=== PATIENT | female | born 1960 | race African-American/Black ===

== ENCOUNTER 2017-05-24 15:18 | Inpatient (IN) | payer BC ==
[2017-05-24] MEDS: SODIUM CHLORIDE 0.9% 1,000 ML IV SCH (18:00)
[2017-05-24] MEDS ORDERED: KETOROLAC 30 MG/ML 1 ML VIAL IVP SCH (18:00)
[2017-05-24 18:31] LABS: Basophils # (A) 0.1 k/uL (0-0.2); Basophils % (A) 0 %; CHCM 34.1; Eosinophils # (A) 0.2 k/uL (0-0.7); Eosinophils % (A) 1 %; HCT 47.1 % (34.0-46.0); HDW 2.49; HGB 16.2 gm/dL (11.4-16.0); Luc # (Auto) 0.26; Luc % (Auto) 2; Lymphocytes % (A) 20 %; MCH 29.3 pg (25.0-35.0); MCHC 34.3 g/dL (31.0-37.0); MCV 85.4 fL (80.0-100.0); Mean Platelet Volume 6.6; Monocytes # (A) 1.1 k/uL (0-1.0); Monocytes % (A) 7 %; Neutrophils # (A) 10.2 k/uL (1.3-7.7); Neutrophils % (A) 69 %; RBC 5.52 m/uL (3.80-5.40); RDW 13.3 % (11.5-15.5); WBC 14.7 k/uL (3.8-10.6); WBC (Perox) 15.28
--- NOTE | 2017-05-24 18:36 | XR ---
EXAMINATION TYPE: XR abdomen 1V DATE OF EXAM: 05/24/2017 COMPARISON: NONE HISTORY: Vomiting TECHNIQUE: 2 views FINDINGS: There is no sign of intestinal obstruction or pneumoperitoneum. Fecal pattern is normal. Th ere is no sign of a mass. There are no pathologic calcifications over the kidneys. Lung bases are rogelio ar. IMPRESSION: Nonacute abdomen.
[2017-05-24 18:38] LABS: ALT 42 U/L (9-52); AST 38 U/L (14-36); Alkaline Phosphatase 109 U/L (38-126); Anion Gap 11 mmol/L; Blood Urea Nitrogen 18 mg/dL (7-17); Calcium 9.4 mg/dL (8.4-10.2); Carbon Dioxide 27 mmol/L (22-30); Chloride 101 mmol/L (98-107); Glucose 83 mg/dL (74-99); Non-African American GFR(MDRD) >60 (>60 ml/min/1.73 sqM); Sodium 139 mmol/L (137-145); Total Bilirubin 0.6 mg/dL (0.2-1.3); Total Protein 7.5 g/dL (6.3-8.2)
[2017-05-24] MEDS ORDERED: Potassium Replacement Protocol 1 EACH MISC MISCELLANE PRN ×2 (18:43→21:06)
[2017-05-24] MEDS: POTASSIUM CHLORIDE 10 MEQ in WATER FOR INJECTION 1 100ML.BAG IVPB SCH ×3 (20:15→22:37)
[2017-05-24] MEDS: KETOROLAC 30 MG/ML 1 ML VIAL IVP PRN (20:50)
[2017-05-24] MEDS: ONDANSETRON 4 MG/2 ML VIAL IVP PRN (20:52)
[2017-05-24] MEDS ORDERED: POTASSIUM CHLORIDE 10 MEQ, LIDOCAINE 2% INJ 10 MG in SODIUM CHLORIDE 0.9% 100 ML IVPB SCH (21:00)
[2017-05-24] MEDS: POTASSIUM CHLORIDE 10 MEQ, LIDOCAINE 2% INJ 10 MG in SODIUM CHLORIDE 0.9% 100 ML IV SCH ×2 (22:35→23:04)
[2017-05-25] MEDS: SODIUM CHLORIDE 0.9% 1,000 ML IV SCH ×3 (06:11→16:28)
[2017-05-25] MEDS: ONDANSETRON 4 MG/2 ML VIAL IVP PRN ×2 (06:50→13:02)
[2017-05-25] MEDS ORDERED: SCOPOLAMINE 1.5MG/72HR PATCH TRANSDERM STA (08:37)
[2017-05-25] MEDS: amLODIPine 5 MG TAB PO SCH (08:42)
[2017-05-25] MEDS: PANTOPRAZOLE 40 MG TABLET PO SCH (08:42)
[2017-05-25] MEDS: ASPIRIN 81 MG CHEW PO SCH (08:43)
[2017-05-25] MEDS: METOCLOPRAMIDE 5 MG/ML 2 ML VIAL IVP PRN ×2 (08:56→14:41)
--- NOTE | 2017-05-25 10:02 | P.CONS ---
History of Present Illness - Reason for Consult Consult date: 05/25/17 Nausea vomiting Requesting physician: Jona Aguilar - History of Present Illness 56-year-old female presents with intractable nausea vomiting diarrhea that started last . Patient ate a meal consisting of multicolored laird peppers, broccoli, baked chicken wings with blue cheese on night. She then had a large liquid nonbloody bowel movement the next day followed by multiple episodes of nonbloody emesis and watery stools. Diarrhea subsided on Tuesday but she continues to have intermittent dry heaves. No documented fevers but she did feel feverish. White count 14.7. Hemoglobin 16.2. BUN 18. An 0.6. Potassium 3.0. Sodium 139. Transaminases unremarkable. Lipase 103. Abdominal x-rays nonacute abdomen. No history of EGD. Review of Systems Constitutional: Denies fever, chills, sweats, weight gain, or loss. HEENT: Negative for migraines, blurred vision or loss, earaches, drainage, tinnitus, oral mucosal lesions, dysphagia, or odynophagia. CARDIAC: Hypertension. Negative for chest pain, arrhythmias, or palpitation. RESPIRATORY: Negative for shortness of breath, hemoptysis, cough, or sputum production. GI: See HPI for pertinent findings. : Negative for hematuria, urgency, frequency, polyuria, or dysuria. GYNc: Denies possibility of . Negative vaginal discharge. MUSCULOSKELETAL: Negative for muscle aches, swelling, arthritis, and arthralgias. NEUROLOGIC: Negative for stroke or TIA. ENDOCRINE: Negative for thyroid problems. SKIN: Negative for rash or itching. PSYCHIATRIC: Negative history for depression and anxiety All systems: negative (See HPI) Past Medical History Past Medical History: Hypertension History of Any Multi-Drug Resistant Organisms: None Reported Past Surgical History: Uterine Ablation Past Anesthesia/Blood Transfusion Reactions: No Reported Reaction Past Psychological History: No Psychological Hx Reported Smoking Status: Former smoker Past Alcohol Use History: None Reported Past Drug Use History: Marijuana - Past Family History Sister(s) Family Medical History: Hypertension Medications and Allergies Home Medications Medication Instructions Recorded Confirmed Type Aspirin EC [Ecotrin Low Dose] 81 mg PO DAILY 05/24/17 05/24/17 History Esomeprazole Magnesium [NexIUM] 40 mg PO DAILY 05/24/17 05/24/17 History Flaxseed Oil [Dexter-3 Flaxseed Oil] 1,000 mg PO DAILY 05/24/17 05/24/17 History Multivitamins, Thera [Multivitamin 1 tab PO DAILY 05/24/17 05/24/17 History (formulary)] amLODIPine [Norvasc] 5 mg PO DAILY 05/24/17 05/24/17 History Allergies Allergy/AdvReac Type Severity Reaction Status Date / Time No Known Allergies Allergy Verified 05/24/17 16:53 Physical Exam Vitals: Vital Signs Temp Pulse Resp BP BP Pulse Ox 05/25/17 07:00 97.7 F 63 20 144/74 97 05/24/17 23:00 98.6 F 65 18 155/82 99 05/24/17 16:22 97.7 F 56 L 16 155/75 98 Intake and Output 05/24/17 05/25/17 05/25/17 22:59 06:59 14:59 Intake Total 350 400 Balance 350 400 Intake: Oral 350 400 Other: Voiding Method Toilet Toilet # Voids 1 2 Weight 73 kg General appearance: The patient is alert, oriented, in no acute distress. HET: Head is normocephalic and atraumatic. Pupils are equal and reactive. Oropharynx is clear without lesions. Neck: Supple without lymphadenopathy. Trachea midline. Heart: S1 S2. Regular rate and rhythm. Lungs: No crackles or wheezes are heard. Abdomen: Soft, nontender, nondistended with bowel sounds. No peritoneal signs. No palpable organomegaly or masses. Extremities: Normal skin color and turgor. No cyanosis, rash, ulceration, clubbing, or edema. Radial and pedal pulses are 2/4 bilaterally. Neurological: No focal deficits. Strength and sensation are grossly intact. Results CBC & Chem 7: 05/24/17 18:10 05/24/17 18:10 Labs: Abnormal Lab Results - Last 24 Hours (Table) 05/24/17 05/24/17 Range/Units 18:10 18:10 WBC 14.7 H (3.8-10.6) k/uL RBC 5.52 H (3.80-5.40) m/uL Hgb 16.2 H (11.4-16.0) gm/dL Hct 47.1 H (34.0-46.0) % Neutrophils # 10.2 H (1.3-7.7) k/uL Monocytes # 1.1 H (0-1.0) k/uL Potassium 3.0 L* (3.5-5.1) mmol/L BUN 18 H (7-17) mg/dL AST 38 H (14-36) U/L Abdominal x-ray: report reviewed (Dr. Valle) Assessment and Plan (1) Gastroenteritis Narrative/Plan: 56-year-old female presents with intractable nausea vomiting nonbloody diarrhea 5 days after eating a meal consisting of fresh vegetables chicken wings and blue cheese. Suspect gastroenteritis. Status: Acute Plan: 1. Continue with IV emetics. Scopolamine patch. Protonix 40 mg daily. Supportive and symptomatic support. Will advance diet as tolerated. Endoscopic evaluation not planned at this time but contingent on clinical course. Overall symptoms appear to be improving. Will follow closely with you. Thank you for this kind referral and the opportunity to participate in the care of your patient. This consultation was discussed with Dr. Valle. The impression and plan of care have been directed as dictated.
[2017-05-25 10:19] LABS: ALT 36 U/L (9-52); AST 33 U/L (14-36); Alkaline Phosphatase 114 U/L (38-126); Anion Gap 11 mmol/L; Blood Urea Nitrogen 14 mg/dL (7-17); Calcium 9.2 mg/dL (8.4-10.2); Carbon Dioxide 25 mmol/L (22-30); Chloride 101 mmol/L (98-107); Glucose 75 mg/dL (74-99); Non-African American GFR(MDRD) >60 (>60 ml/min/1.73 sqM); Potassium 3.4 mmol/L (3.5-5.1); Sodium 137 mmol/L (137-145); Total Bilirubin 0.8 mg/dL (0.2-1.3); Total Protein 7.1 g/dL (6.3-8.2)
[2017-05-25] MEDS: MULTIVITAMINS, THERA 1 EACH TAB PO SCH (12:59)
[2017-05-25] MEDS ORDERED: Potassium Replacement Protocol 1 EACH MISC MISCELLANE PRN (13:05)
[2017-05-25] MEDS: POTASSIUM CHLORIDE 10 MEQ, LIDOCAINE 2% INJ 10 MG in SODIUM CHLORIDE 0.9% 100 ML IV SCH ×2 (14:35→16:28)
[2017-05-25] MEDS: KETOROLAC 30 MG/ML 1 ML VIAL IVP PRN (21:01)
--- NOTE | 2017-05-25 23:21 | HP ---
CHIEF COMPLAINT: This is a 56-year-old -[place] female with nausea and vomiting for the past 4 days; unable to keep anything down. She had a large liquid bowel movement the day of the episode. Since then she cannot keep any solids or liquids down and is unable to take anything by mouth. She had some fevers, tactile, and was admitted due to dehydration and acute abdominal pain. GI consultation is recommended at this time. REVIEW OF SYSTEMS: CONSTITUTIONAL: Weakness, fatigue. HEENT: Negative. CARDIAC: Negative. PULMONARY: Negative. GI: As mentioned above. BLEACH TESTER: Negative. MUSCULOSKELETAL: Negative. NEURO: Negative. ENDOCRINE: Negative. SKIN: Dry mucous membranes. PSYCH: Negative. PAST MEDICAL HISTORY: 1. Hypertension. 2. Uterine ablation. 3. Former smoker. 4. Marijuana user. FAMILY HISTORY: Sister with hypertension. HOME MEDICATIONS: 1. Aspirin 81 daily. 2. Nexium 40 daily. 3. Cushing-3 daily. 4. Multivitamin daily. 5. Norvasc 5 mg daily. ALLERGIES: NO KNOWN DRUG ALLERGIES. Temperature 97.7, pulse 60s, respiratory rate 18 to 20, blood pressure 140s over 70s. Pulse ox 97% on room air. SKIN: Dry. Skin turgor poor. Dry mucous membranes. Lungs are clear. CARDIAC: S1, S2. Mild tachycardia. ABDOMEN: Soft. Increased bowel sounds. No mass or organomegaly. EXTREMITIES: Some dry skin. Normal pulses. NEUROLOGIC: Alert and oriented x3. PSYCH: Fair mood and affect. White count is 14.7, hemoglobin 16.2. Potassium 3.1. Sodium 139. ASSESSMENT: 1. Gastroenteritis. 2. Hypokalemia. 3. Dehydration, mild to moderate. Scopolamine patch. Protonix is ordered. IV antiemetics ordered. Wait for GI recommendations. Stool culture. Rehydration. Electrolyte replacement. MTDD
[2017-05-26] MEDS: SODIUM CHLORIDE 0.9% 1,000 ML IV SCH ×3 (00:03→20:16)
[2017-05-26 08:09] LABS: ALT 30 U/L (9-52); AST 26 U/L (14-36); Alkaline Phosphatase 104 U/L (38-126); Anion Gap 11 mmol/L; Blood Urea Nitrogen 11 mg/dL (7-17); Calcium 8.9 mg/dL (8.4-10.2); Carbon Dioxide 23 mmol/L (22-30); Chloride 103 mmol/L (98-107); Glucose 55 mg/dL (74-99); Non-African American GFR(MDRD) >60 (>60 ml/min/1.73 sqM); Potassium 3.5 mmol/L (3.5-5.1); Sodium 137 mmol/L (137-145); Total Bilirubin 0.8 mg/dL (0.2-1.3); Total Protein 6.8 g/dL (6.3-8.2)
[2017-05-26 08:13] LABS: Basophils % (A) 0 %; CH 29.8; CHCM 34.1; Eosinophils # (A) 0.1 k/uL (0-0.7); Eosinophils % (A) 1 %; HCT 44.9 % (34.0-46.0); HDW 2.47; HGB 15.2 gm/dL (11.4-16.0); Luc # (Auto) 0.26; Luc % (Auto) 2; Lymphocytes # (A) 2.8 k/uL (1.0-4.8); Lymphocytes % (A) 23 %; MCH 29.7 pg (25.0-35.0); MCHC 33.8 g/dL (31.0-37.0); MCV 87.6 fL (80.0-100.0); Monocytes # (A) 0.8 k/uL (0-1.0); Monocytes % (A) 7 %; Neutrophils # (A) 8.2 k/uL (1.3-7.7); Neutrophils % (A) 68 %; RBC 5.13 m/uL (3.80-5.40); WBC 12.2 k/uL (3.8-10.6); WBC (Perox) 11.72
[2017-05-26] MEDS: POTASSIUM CHLORIDE 10 MEQ, LIDOCAINE 2% INJ 10 MG in SODIUM CHLORIDE 0.9% 100 ML IVPB SCH ×2 (08:17→09:37)
[2017-05-26] MEDS: ONDANSETRON 4 MG/2 ML VIAL IVP PRN ×3 (08:17→20:14)
[2017-05-26] MEDS: KETOROLAC 30 MG/ML 1 ML VIAL IVP PRN (08:17)
[2017-05-26] MEDS: PANTOPRAZOLE 40 MG TABLET PO SCH (08:18)
[2017-05-26] MEDS: amLODIPine 5 MG TAB PO SCH (08:18)
[2017-05-26] MEDS: ASPIRIN 81 MG CHEW PO SCH (08:19)
[2017-05-26 10:23] LABS: Glucose,Whole Blood 65 mg/dL (75-99)
[2017-05-26] MEDS: METOCLOPRAMIDE 5 MG/ML 2 ML VIAL IVP PRN ×2 (10:30→21:51)
[2017-05-26 10:43] LABS: Glucose,Whole Blood 90 mg/dL (75-99)
--- NOTE | 2017-05-26 11:40 | P.PN ---
Subjective Principal diagnosis: Nausea vomiting 56-year-old female admitted with nausea vomiting diarrhea suspected gastroenteritis. Vomiting and diarrhea resolved. Persistent nausea. Tolerating very small amounts of diet. Afebrile. Objective - Vital Signs Vital signs: Vital Signs Temp 97.8 F 05/26/17 07:00 Pulse 65 05/26/17 07:00 Resp 20 05/26/17 07:00 BP 151/73 05/26/17 07:00 Pulse Ox 98 05/26/17 07:00 Intake & Output 05/25/17 05/26/17 05/26/17 18:59 06:59 18:59 Intake Total 1400 Balance 1400 Intake: Intake, IV Titration 1100 Amount Potassium Chloride 10 meq 100 Lidocaine 2% Inj 10 mg In Sodium Chloride 0.9% 100 ml @ 100 mls/hr IV Q1HR DONTE Rx#:[id number] Sodium Chloride 0.9% 1, 1000 000 ml @ 100 mls/hr IV . Q10H DONTE Rx#:[id number] Oral 300 Other: Voiding Method Toilet Toilet # Voids 2 1 # Bowel Movements 0 - Exam General appearance: The patient is alert, oriented, in no acute distress. HET: Head is normocephalic and atraumatic. Pupils are equal and reactive. Oropharynx is clear without lesions. Neck: Supple without lymphadenopathy. Trachea midline. Heart: S1 S2. Regular rate and rhythm. Lungs: No crackles or wheezes are heard. Abdomen: Soft, nontender, nondistended with bowel sounds. No peritoneal signs. No palpable organomegaly or masses. Extremities: Normal skin color and turgor. No cyanosis, rash, ulceration, clubbing, or edema. Radial and pedal pulses are 2/4 bilaterally. Neurological: No focal deficits. Strength and sensation are grossly intact. - Labs CBC & Chem 7: 05/26/17 07:30 05/26/17 07:30 Labs: Abnormal Lab Results - Last 24 Hours (Table) 05/26/17 05/26/17 05/26/17 Range/Units 07:30 07:30 10:22 WBC 12.2 H (3.8-10.6) k/uL Neutrophils # 8.2 H (1.3-7.7) k/uL Glucose 55 L (74-99) mg/dL POC Glucose (mg/dL) 65 L (75-99) mg/dL Assessment and Plan (1) Gastroenteritis Narrative/Plan: 56-year-old female presents with intractable nausea vomiting nonbloody diarrhea 5 days after eating a meal consisting of fresh vegetables chicken wings and blue cheese. Suspect gastroenteritis. Status: Acute Plan: 1. Continue with IV emetics. Scopolamine patch. Protonix 40 mg daily. Supportive and symptomatic support. Diet as tolerated. Endoscopic evaluation not planned at this time but contingent on clinical course. Will follow closely with you. Assessment and plan of care discussed with Dr. Valle
[2017-05-26] MEDS: MULTIVITAMINS, THERA 1 EACH TAB PO SCH (12:33)
[2017-05-26 13:31] LABS: Anion Gap 9 mmol/L; Blood Urea Nitrogen 12 mg/dL (7-17); Calcium 9.3 mg/dL (8.4-10.2); Carbon Dioxide 24 mmol/L (22-30); Chloride 104 mmol/L (98-107); Glucose 83 mg/dL (74-99); Non-African American GFR(MDRD) >60 (>60 ml/min/1.73 sqM); Sodium 137 mmol/L (137-145)
[2017-05-27] MEDS: ONDANSETRON 4 MG/2 ML VIAL IVP PRN ×4 (02:51→20:29)
[2017-05-27] MEDS: SODIUM CHLORIDE 0.9% 1,000 ML IV SCH ×2 (05:27→14:31)
[2017-05-27] MEDS: METOCLOPRAMIDE 5 MG/ML 2 ML VIAL IVP PRN (05:28)
[2017-05-27] MEDS: PANTOPRAZOLE 40 MG TABLET PO SCH (08:11)
[2017-05-27] MEDS: amLODIPine 5 MG TAB PO SCH (08:11)
[2017-05-27] MEDS: ASPIRIN 81 MG CHEW PO SCH (08:11)
[2017-05-27 09:29] LABS: Basophils % (A) 0 %; Eosinophils # (A) 0.2 k/uL (0-0.7); Eosinophils % (A) 1 %; HCT 44.4 % (34.0-46.0); HDW 2.45; Luc % (Auto) 2; Lymphocytes # (A) 2.9 k/uL (1.0-4.8); Lymphocytes % (A) 22 %; MCH 29.8 pg (25.0-35.0); MCHC 33.7 g/dL (31.0-37.0); MCV 88.6 fL (80.0-100.0); Mean Platelet Volume 7.2; Monocytes # (A) 0.9 k/uL (0-1.0); Monocytes % (A) 7 %; Neutrophils # (A) 8.5 k/uL (1.3-7.7); Neutrophils % (A) 67 %; RBC 5.01 m/uL (3.80-5.40); RDW 14.2 % (11.5-15.5); WBC 12.8 k/uL (3.8-10.6); WBC (Perox) 11.63
--- NOTE | 2017-05-27 11:53 | P.PN ---
Subjective Principal diagnosis: Nausea vomiting 56-year-old female admitted with nausea vomiting diarrhea suspected gastroenteritis. Vomiting and diarrhea resolved. Persistent nausea but slowly improving. Tolerating very small amounts of diet. Afebrile. Objective - Vital Signs Vital signs: Vital Signs Temp 98.9 F 05/27/17 07:00 Pulse 79 05/27/17 07:00 Resp 16 05/27/17 07:00 BP 145/82 05/27/17 07:00 Pulse Ox 97 05/27/17 07:00 Intake & Output 05/26/17 05/27/17 05/27/17 18:59 06:59 18:59 Intake Total 240 Balance 240 Intake: Oral 240 Other: # Voids 1 1 # Bowel Movements 0 - Exam General appearance: The patient is alert, oriented, in no acute distress. HET: Head is normocephalic and atraumatic. Pupils are equal and reactive. Oropharynx is clear without lesions. Neck: Supple without lymphadenopathy. Trachea midline. Heart: S1 S2. Regular rate and rhythm. Lungs: No crackles or wheezes are heard. Abdomen: Soft, nontender, nondistended with bowel sounds. No peritoneal signs. No palpable organomegaly or masses. Extremities: Normal skin color and turgor. No cyanosis, rash, ulceration, clubbing, or edema. Radial and pedal pulses are 2/4 bilaterally. Neurological: No focal deficits. Strength and sensation are grossly intact. - Labs CBC & Chem 7: 05/27/17 09:02 05/26/17 12:59 Labs: Abnormal Lab Results - Last 24 Hours (Table) 05/27/17 Range/Units 09:02 WBC 12.8 H (3.8-10.6) k/uL Neutrophils # 8.5 H (1.3-7.7) k/uL Assessment and Plan (1) Gastroenteritis Narrative/Plan: 56-year-old female presents with intractable nausea vomiting nonbloody diarrhea 5 days after eating a meal consisting of fresh vegetables chicken wings and blue cheese. Suspect gastroenteritis. Status: Acute Plan: 1. Continue with IV emetics. Scopolamine patch. Protonix 40 mg daily. Supportive and symptomatic support. Diet as tolerated. Endoscopic evaluation not planned at this time but contingent on clinical course as early as tomorrow if nausea does not improve. Will follow closely with you. Assessment and plan of care discussed with Dr. Valle
[2017-05-27] MEDS: MULTIVITAMINS, THERA 1 EACH TAB PO SCH (12:15)
--- NOTE | 2017-05-27 13:56 | PN ---
SUBJECTIVE: A 56-year-old white female ( ) progressive nausea, being treated with antiemetics. She is on a soft diet at this time. Suspect gastroenteritis. Temp 97.8, pulse 60 to 65, respiratory rate 18 to 20, blood pressure 140s to 150s over 70s. O2 is 98% on room air. HEENT: Normocephalic, atraumatic. OPHTHALMOLOGIC: Pupils equal, round and reactive to light and accommodation. HEART: S1 and S2. LUNGS: Clear. GI: Increased bowel sounds x4. White count is 12.2 ASSESSMENT: 1. Gastroenteritis. 2. Irretractible nausea, vomiting. 3. Nonbloody stools ( ). Continue with IV antiemetics, scopolamine patch, Protonix. Supportive comfort measures. Possible discharge home in the next 24 to 48 hours. MTDD
[2017-05-27] MEDS: KETOROLAC 30 MG/ML 1 ML VIAL IVP PRN (16:23)
[2017-05-28] MEDS: METOCLOPRAMIDE 5 MG/ML 2 ML VIAL IVP PRN ×2 (00:36→11:56)
[2017-05-28] MEDS: SODIUM CHLORIDE 0.9% 1,000 ML IV SCH ×3 (00:37→22:18)
[2017-05-28] MEDS: ONDANSETRON 4 MG/2 ML VIAL IVP PRN ×4 (03:08→22:17)
[2017-05-28] MEDS: amLODIPine 5 MG TAB PO SCH (09:09)
[2017-05-28] MEDS: PANTOPRAZOLE 40 MG TABLET PO SCH (09:09)
[2017-05-28] MEDS: ASPIRIN 81 MG CHEW PO SCH (09:09)
[2017-05-28] MEDS: MULTIVITAMINS, THERA 1 EACH TAB PO SCH (11:59)
--- NOTE | 2017-05-28 16:44 | PN ---
DATE OF SERVICE: 05/28/2017 The patient is a 56-year-old pleasant lady admitted to the hospital with acute onset of nausea, vomiting, diarrhea a week ago. She is feeling better. Still has some nausea. No further episodes of nausea, vomiting. She is on a heart- healthy diet, tolerating reasonably well. On physical examination, she appears comfortable. No apparent distress. Vital signs are stable. Blood pressure is 132 /74, pulse rate 82, temperature 97.5. HEENT EXAMINATION: Unremarkable. Conjunctivae pink. Sclerae anicteric. Oral cavity no lesions. NECK: No JVD or lymph node enlargement. Chest was clear to auscultation. HEART: Regular rate and rhythm. ABDOMEN: Soft. Bowel sounds are positive. No organomegaly. EXTREMITIES: No pedal edema. SKIN: No rashes. NEURO: Alert and oriented x3. No focal deficits. Labs done yesterday showed WBC 12.8, hemoglobin 15, platelets normal. Basic metabolic panel within normal limits. IMPRESSION: Acute onset of nausea and vomiting and diarrhea, most likely related to viral gastroenteritis, which is gradually improving. Patient has no further episodes of vomiting or diarrhea; however, she had some persistent nausea, possibly related to recent episode of viral gastroenteritis. RECOMMENDATIONS: 1. Continue with antiemetics. 2. Advised small frequent meals. 3. Continue with Protonix and antiemetics as needed. 4. She can be discharged home tomorrow with outpatient followup in a week. If she still has persistent symptoms in the next 1 or 2 weeks, I will consider proceeding with further workup. Thank you for this consultation. MARIA LUISA
[2017-05-28] MEDS: KETOROLAC 30 MG/ML 1 ML VIAL IVP PRN (19:56)
[2017-05-29] MEDS: KETOROLAC 30 MG/ML 1 ML VIAL IVP PRN (06:58)
[2017-05-29] MEDS: ONDANSETRON 4 MG/2 ML VIAL IVP PRN (07:06)
[2017-05-29 07:09] VITALS: BP 128/66; PULSE 63; RESP 16; TEMP 99.2
[2017-05-29] MEDS: ASPIRIN 81 MG CHEW PO SCH (08:10)
[2017-05-29] MEDS: PANTOPRAZOLE 40 MG TABLET PO SCH (08:10)
[2017-05-29] MEDS: amLODIPine 5 MG TAB PO SCH (08:11)
[2017-05-29] MEDS: SODIUM CHLORIDE 0.9% 1,000 ML IV SCH (08:13)
--- NOTE | 2017-05-29 10:48 | PN ---
SUBJECTIVE: 56 year old female admitted with dehydration, gastroenteritis, possible ( ) ulcer. EGD will be done if she does not improve. Her diet will be advanced. Zofran will be given for nausea. Cardiovascular: S1, S2. Lungs are clear. Psych: Fair mood and affect. GI: Increased bowel sounds times four. ASSESSMENT AND PLAN: 1. Gastroenteritis. 2. Dehydration. 3. Acute gastritis. 4. Hypertension. 5. Advanced diet with Zofran. 6. Possible discharge home tomorrow versus EGD, depends on her improvement. MTDD
== END 2017-05-29 12:21 | disposition home or self-care (01) | DRG 392 ==
LOC: 4MS4W 15:41
PROVIDERS: ADMIT Family Medicine; ATTEND Family Medicine
DX: A08.4 Viral intestinal infection, unspecified (principal); I10 Essential (primary) hypertension; E87.6 Hypokalemia; E86.0 Dehydration; K29.00 Acute gastritis without bleeding; R10.9 Unspecified abdominal pain; R53.1 Weakness; R00.0 Tachycardia, unspecified; F12.90 Cannabis use, unspecified, uncomplicated; Z87.891 Personal history of nicotine dependence; Z82.49 Family history of ischemic heart disease and other diseases of the circulatory system; Z79.899 Other long term (current) drug therapy; Z79.82 Long term (current) use of aspirin; Z87.42 Personal history of other diseases of the female genital tract
CPT/HCPCS: 74000; 80048; 80053; 83690; 83735; 84132; 85025; 85652

== ENCOUNTER → 2017-08-02 | Outpatient (CLI) | payer BC ==
--- NOTE | 2017-08-03 11:09 | MM ---
Reason for exam: screening (asymptomatic). Last mammogram was performed 1 year and 2 months ago. History: Patient is postmenopausal and is nulliparous. Took hormonal contraceptives for 21 years beginning at age 24. Physical Findings: A clinical breast exam by your physician is recommended on an annual basis and results should be correlated with mammographic findings. MG Screening Mammo w CAD Bilateral CC and MLO view(s) were taken. Prior study comparison: June 11, 2016, bilateral MG 3d screening mammo w/cad. May 20, 2015, bilateral MG diagnostic mammo w CAD VON. The breast tissue is heterogeneously dense. This may lower the sensitivity of mammography. New mass like area upper inner right breast measuring 2.5 x 1.3cm approximately 9.5cm from nipple. This finding is changed when compared with previous exams. ASSESSMENT: Incomplete: need additional imaging evaluation, BI-RAD 0 RECOMMENDATION: Special view mammogram and ultrasound of the right breast. [facility] will attempt to contact patient to return for supplemental views and ultrasound.
== END | disposition home or self-care (01) ==
LOC: RADMAMWWP 14:39
PROVIDERS: ATTEND Obstetrics & Gynecology
DX: Z12.31 Encounter for screening mammogram for malignant neoplasm of breast (principal)

== ENCOUNTER → 2017-08-15 | Outpatient (CLI) | payer BC ==
--- NOTE | 2017-08-16 08:06 | MM ---
Reason for exam: additional evaluation requested from abnormal screening. Last mammogram was performed less than 1 month ago. History: Patient is postmenopausal and is nulliparous. Took hormonal contraceptives for 21 years beginning at age 24. Physical Findings: Nurse did not find any significant physical abnormalities on exam. MG Work Up Mamm w CAD RT Spot compression CC, spot compression MLO, and LM view(s) were taken of the right breast. Prior study comparison: August 02, 2017, bilateral MG screening mammo w CAD. June 11, 2016, bilateral MG 3d screening mammo w/cad. May 20, 2015, bilateral MG diagnostic mammo w CAD VON. June 17, 2014, bilateral MG screening mammo w CAD. There are scattered fibroglandular densities. There is a new 2.5 x 1.5 x 2.2cm irregular mass in the upper inner quadrant. Lymph nodes in the right axilla are more numerous and larger than the contralateral side. These results were verbally communicated with the patient and result sheet given to the patient on 08/15/17. ASSESSMENT: Incomplete: need additional imaging evaluation, BI-RAD 0 RECOMMENDATION: Ultrasound of the right breast. KEIKOD
--- NOTE | 2017-08-16 08:09 | USB ---
Reason for exam: additional evaluation requested from abnormal screening. History: Patient is postmenopausal and is nulliparous. Took hormonal contraceptives for 21 years beginning at age 24. US Breast Workup Limited RT Right breast ultrasound demonstrates a 1.7 x 1.9 x 1.6cm irregular, solid, hypoechoic lesion at 1 o'clock. 2 axillary nodes are prominent measuring up to 1.1cm short axis but show cortical thickening up to 8mm. These results were verbally communicated with the patient and result sheet given to the patient on 08/15/17. ASSESSMENT: Highly suggestive of malignancy, BI-RAD 5 RECOMMENDATION: Surgical consultation and ultrasound core biopsy of the right breast. (1 o'clock and axillary lymph node) Called with mammographic findings and has scheduled an appointment for the patient for 08/17/17 at 2:[address] Mares/Fátima Schaefer. PRELIMINARY REPORT CALLED AND FAXED TO DR. MARES ON 08/16/17.
== END | disposition home or self-care (01) ==
LOC: RADMAMWWP 14:26
PROVIDERS: ATTEND Obstetrics & Gynecology
DX: R92.8 Other abnormal and inconclusive findings on diagnostic imaging of breast (principal)
CPT/HCPCS: 76642; G0206

== ENCOUNTER → 2017-08-30 | Day surgery (SDC) | payer BC ==
[2017-08-30 07:32] VITALS: RESP 16; TEMP 97.7; BMI 31.6
[2017-08-30 09:00] VITALS: BP 135/84; PULSE 61
--- NOTE | 2017-08-30 09:26 | USB ---
EXAMINATION TYPE: US biopsy breast VAD RT, US biopsy breast add'l VAD RT, MG diagnostic mammo RT wo CAD DATE OF EXAM: 08/30/2017 CLINICAL HISTORY: R92.8 Abn mammo. Abnormal ultrasound TECHNIQUE: Ultrasound guided core biopsy of right breast and right axillary lymph nodes with clip placement both sites on follow-up diagnostic right-sided mammogram. COMPARISON: Prior right breast mammogram and ultrasound August 15, 2017 and older studies. FINDINGS: The procedure of ultrasound guided core biopsy was explained to the patient. Benefits, alternatives, and risks were discussed. An informed consent was then obtained. The patient was placed in supine and LPO positioning for imaging and for the procedure. Preprocedure imaging redemonstrates vague hypoechoic 2.1 cm poorly defined lesion deep in the right breast at 1:00 position. Preprocedure imaging redemonstrates suspicious prominent lymph nodes in the right axilla with some cortical thickening. The overlying skin was prepped and draped in usual sterile fashion. Lidocaine was used as anesthetic into the skin. Lidocaine with epinephrine is used as anesthetic into the deeper tissue up to area of concern in the right breast at 2 sites. Under ultrasound guidance, a 12-gauge vacuum assisted biopsy gun device was used to obtain 5 core samples of primary breast lesion. Following this, a biopsy clip was left in lesion. Under ultrasound guidance, a 14-gauge Bard device was used to obtain 3 core samples of right axillary lymph nodes. Following this a [place] ally clip is deployed. The patient tolerated the procedure well without any immediate complication. The patient was kept in the radiology department for short stay after the procedure and then discharged home in stable condition. High index of suspicion noted at time of procedure. IMPRESSION: Successful, uncomplicated ultrasound guided core biopsy of area of concern in the right breast and axilla, full pathology results to follow. Pathology Results: Malignant A. BREAST, RIGHT, SITE A, ONE O'CLOCK, CORE BIOPSY: INVASIVE HIGH GRADE DUCTAL CARCINOMA. SEE SURGICAL PATHOLOGY CANCER CASE SUMMARY AND COMMENT. B. RIGHT AXILLA, CORE BIOPSY: INVASIVE HIGH GRADE DUCTAL CARCINOMA WITH ASSOCIATED LYMPHOID TISSUE. SEE COMMENT. Recommendation Surgical consult of the right breast. [facility]
== END ==
LOC: RADUSWWP 06:54
PROVIDERS: ATTEND Surgery
DX: C50.211 Malignant neoplasm of upper-inner quadrant of right female breast (principal); Z17.1 Estrogen receptor negative status [ER-]; C96.9 Malignant neoplasm of lymphoid, hematopoietic and related tissue, unspecified
CPT/HCPCS: 38505; 88305; 88342; 19083; G0206; A4648; J2001; 19084

== ENCOUNTER → 2017-09-12 | Outpatient (CLI) | payer BC ==
--- NOTE | 2017-09-12 08:42 | CT ---
EXAMINATION TYPE: CT abdomen pelvis w con DATE OF EXAM: 09/12/2017 HISTORY: Breast CA CT DLP: 936.2mGycm Automated Exposure Control for Dose Reduction was Utilized. CONTRAST: CT scan of the abdomen and pelvis is performed with IV Contrast, patient injected with 100 mL of Omni paque 300. COMPARISON: None. FINDINGS: LUNG BASES: Bibasilar subsegmental dependent atelectasis is present. There is asymmetric right breast skin thickening measuring up to 6 mm. LIVER/GB: 3 mm hypoattenuated hepatic lesion is seen within the left lobe on image 12 of series 3 and image 13 of series 5. Additional 2 mm hypoattenuated lesion is seen within the inferior right lobe o n series 3 image 29 and series 5 image 30. These are too small to accurately characterize. Remainder of the hepatic parenchyma is unremarkable. Liver contour is smooth. No intrahepatic biliary ductal di latation. Gallbladder is unremarkable without radiopaque gallstones. PANCREAS: No significant abnormality is seen. SPLEEN: No significant abnormality is seen. ADRENALS: Symmetric without measurable nodule. KIDNEYS: No significant abnormality is seen. BOWEL: There is a small hiatal hernia and likely pulsion in diverticulum at the gastroesophageal junc tion, left lateral. UTERUS/ADNEXA: No gross abnormality seen. LYMPH NODES: No greater than 1cm abdominal or pelvic lymph nodes are appreciated. OSSEOUS STRUCTURES: 6 mm sclerotic focus of the right ischium and 2 mm sclerotic focus of the right i liac bone are favored to represent bone islands but are nonspecific. Minimal degenerative changes of the thoracolumbar spine are evident as well as the pubic symphysis. OTHER: Small fat filled umbilical hernia superimposed upon diastases recti. IMPRESSION: 1. Two subcentimeter (3 mm and 2 mm) hepatic lesions that are nonspecific and too small to accurately characterize. If clinically indicated dedicated enhanced MR could be performed as these may be very T2 hyperintense and related to hepatic cysts. Early metastasis is possible but considered less likely . If any outside imaging is available for comparison of stability addendum could be performed. 2. Nonspecific sclerotic foci of the left hemipelvis, favored to represent benign bone islands. 3. No evidence of adenopathy within the abdomen or pelvis. 4. Diffuse right-sided breast skin thickening. 5. Small hiatal hernia and likely pulsion diverticulum at the gastroesophageal junction.
--- NOTE | 2017-09-12 14:51 | NM ---
EXAMINATION TYPE: NM bone scan whole body DATE OF EXAM: 09/12/2017 COMPARISON: CT abdomen pelvis same date HISTORY: Breast cancer Delayed whole-body scanning was performed following the injection of 23 mCi Tc 99m MDP. Images acqui red 5.5 hours post injection. FINDINGS: There is increased radiopharmaceutical uptake involving the left ilium corresponding to lytic lesion seen on CT scan. Soft tissue uptake is normal. No additional abnormal uptake evident. Uptake in the, hands, shoulders is likely degenerative. IMPRESSION: Findings compatible with metastatic disease to the left ilium.
== END | disposition home or self-care (01) ==
LOC: RADNMMAIN 06:59
PROVIDERS: ATTEND Surgery
DX: C50.919 Malignant neoplasm of unspecified site of unspecified female breast (principal); K44.9 Diaphragmatic hernia without obstruction or gangrene
CPT/HCPCS: 74177; 78306; A9503; Q9967

== ENCOUNTER → 2017-09-15 | Outpatient (CLI) | payer BC ==
--- NOTE | 2017-09-15 15:14 | MR ---
MR pelvis with and without contrast HISTORY: Metastatic disease to pelvis Correlation to nuclear medicine bone scan and CT abdomen pelvis 09/12/2017 Multiplanar multisequence and postcontrast imaging following 7.5 cc Gadavist IV through the pelvis The area of abnormal peripheral reversible uptake, lucency seen on CT shows abnormal signal on T1 and T2-weighted sequences involving the left ilium. There is enhancement following contrast administrati on. Some local reactive abnormal signal also suspected within the surrounding soft tissues. No eviden t adenopathy. No abnormal fluid collections. Uterus and adnexal structures within normal limits. Urin maciej bladder shows no evident abnormality. IMPRESSION: Findings compatible with metastatic disease to the left ilium.
== END ==
LOC: RADMRIMAIN 12:01
PROVIDERS: ATTEND Radiology Radiation Oncology
DX: C79.51 Secondary malignant neoplasm of bone (principal)
CPT/HCPCS: 72197; A9581

== ENCOUNTER 2017-09-22 11:56 | Day surgery (SDC) | payer BC ==
[2017-09-22 12:28] VITALS: RESP 16; TEMP 98.2
[2017-09-22] MEDS ORDERED: ALPRAZolam 0.5 MG TAB PO STA (12:46)
[2017-09-22] MEDS ORDERED: HYDROmorphone 0.5 MG/0.5 ML SYRINGE IVP PRN (12:47)
[2017-09-22] MEDS ORDERED: HYDROmorphone 1 MG/ML 1 ML SYRINGE IVP STA (13:33)
[2017-09-22 15:09] VITALS: BP 144/81; PULSE 64
--- NOTE | 2017-09-22 16:06 | CT ---
EXAMINATION TYPE: CT guided FNA DATE OF EXAM: 09/22/2017 COMPARISON: NONE HISTORY: Breast cancer, lytic bone lesion left hemipelvis CT DLP: 874 mGycm Automated exposure control for dose reduction was used. FINDINGS: Maximal barrier technique was utilized. The skin overlying a suitable path to the lytic bone lesion w as localized with CT and the skin was prepped and draped. Lidocaine used for local anesthesia. A skin georgie made with a scalpel. An 18-gauge needle advanced into the lytic lesion and coaxial placement of 22-gauge needles was performed, 4 passes were made and aspirated specimen submitted to cytology. Fol lowing the procedure hemostasis achieved. No immediate complication. Patient remained in stable condi tion. IMPRESSION: STATUS POST CT GUIDED FINE-NEEDLE ASPIRATION OF LYTIC BONE LESION, PATHOLOGY PENDING. THIS PROCEDURE PERFORMED BY THE UNDERSIGNED.
== END 2017-09-22 14:40 | disposition home or self-care (01) ==
LOC: RADPROMAIN 11:56
PROVIDERS: ATTEND Surgery
DX: C79.51 Secondary malignant neoplasm of bone (principal); C50.211 Malignant neoplasm of upper-inner quadrant of right female breast
CPT/HCPCS: 88305; 88173; 88342; 88341; 96374; 77012; 10022; J1170

== ENCOUNTER → 2018-01-21 | Outpatient (CLI) | payer BC ==
[2018-01-21 09:38] LABS: Blood Urea Nitrogen 13 mg/dL (7-17)
--- NOTE | 2018-01-23 08:55 | BMR ---
EXAMINATION TYPE: MR breast BILAT wo/w con DATE OF EXAM: 01/21/2018 COMPARISON: Exams dating back to 06/11/2016 HISTORY: Rt breast ca, Aug 2017. 08/30/2017 right breast biopsy at 1:00: Invasive high-grade ductal c arcinoma and right axilla metastatic invasive high-grade ductal carcinoma. TECHNIQUE: A series of fat and water weighted images in the long and short axis views of both breasts are obtained in conjunction with dynamic contrast MRI with subtraction technique. The patient was i njected with 7.5 mL intravenous Gadavist gadolinium contrast. Three-dimensional and additional post processing imaging is created on independent workstation and reviewed during official interpretation of this study. FINDINGS: There is minimal background parenchymal enhancement in breasts that are composed of heterog enous fibroglandular tissue. Post therapy changes such as skin thickening and edema are seen of the r ight breast. Susceptibility artifact is seen near the 1:00 position in the right breast from the biop sy-proven invasive ductal carcinoma as well as from a left-sided MediPort. There is no residual ident ifiable mass at this location. There is T2 hyperintensity and T1 hypointensity in a linear fashion em anating posterior medially with very mild enhancement not meeting threshold for evaluation of kinetic s. This may represent surrounding inflammatory change rather than residual neoplasm. The previously s een abnormal right axillary lymph nodes no longer meet size criteria for enlargement the largest lymp h node measures 5 mm in short axis small scattered subcentimeter T2 hyperintense and T1 hypointense n onenhancing cysts are seen such as on T2 fat sat axial image 18 and posterior depth in the lower oute r quadrant on the right. No suspicious mass or nonmass enhancement is seen within either breast. No left-sided adenopathy, int ernal mammary adenopathy, or intramammary adenopathy is seen. Nonenhancing 6 mm left hepatic lobe T2 hyperintense and T1 hypointense lesion is favored to represent a small cyst. IMPRESSION: BI-RADS 6-known malignancy. There is no appreciable suspicious enhancement or measurable focal lesion at the site of prior biopsy proven invasive ductal carcinoma is not the site of susceptibility artif act from the biopsy marker at the 1:00 position within the right breast findings indicate response to treatment. Additionally the right adenopathy has markedly improved in the interim with no pathologic ally enlarged lymph nodes by size criteria. No new additional sites of disease are appreciated within the right or left breast.
== END | disposition home or self-care (01) ==
LOC: RADMRIMAIN 06:58
PROVIDERS: ATTEND Surgery
DX: C50.919 Malignant neoplasm of unspecified site of unspecified female breast (principal)
CPT/HCPCS: 82565; 84520; 77059; 36415; 0159T; A9581

== ENCOUNTER → 2018-08-21 | Outpatient (CLI) | payer BC ==
--- NOTE | 2018-08-21 14:20 | MM ---
Reason for exam: additional evaluation requested from prior study. Last mammogram was performed 1 year ago. History: Patient is postmenopausal, has history of breast cancer at age 57, and is nulliparous. Malignant US biopsy breast VAD RT of the right breast, August 30, 2017. Malignant US biopsy breast add'l VAD RT of the right breast, August 30, 2017. Took hormonal contraceptives for 21 years beginning at age 24. Physical Findings: Nurse did not find any significant physical abnormalities on exam. MG 3D Diag Mammo W/Cad VON Bilateral CC and MLO view(s) were taken. Prior study comparison: August 30, 2017, right breast MG diagnostic mammo RT wo CAD. August 15, 2017, right breast MG work up mamm w CAD RT. There are scattered fibroglandular densities. Post surgical and post therapy changes right breast with biozorb device. These changes can be reassessed in 6 months. Otherwise, no significant change. These results were verbally communicated with the patient and result sheet given to the patient on 08/21/18. ASSESSMENT: Probably benign, BI-RAD 3 RECOMMENDATION: Follow-up diagnostic mammogram of the right breast in 6 months.
== END | disposition home or self-care (01) ==
LOC: RADMAMWWP 13:27
PROVIDERS: ATTEND Radiology Radiation Oncology
DX: C50.211 Malignant neoplasm of upper-inner quadrant of right female breast (principal); C77.3 Secondary and unspecified malignant neoplasm of axilla and upper limb lymph nodes; Z98.890 Other specified postprocedural states
CPT/HCPCS: 77062; 77066

== ENCOUNTER → 2018-10-03 | Outpatient (CLI) | payer BC ==
--- NOTE | 2018-10-03 14:23 | NM ---
EXAMINATION TYPE: NM bone scan whole body DATE OF EXAM: 10/03/2018 COMPARISON: 09/12/2017 HISTORY: Right breast CA Delayed whole-body scanning was performed following the injection of 23.9 mCi Tc 99m MDP. Images acq uired 3 hours post injection. FINDINGS: No concerning intense uptake to suggest osseous metastatic disease at this time. Degenerative uptake about the shoulders, sternoclavicular joints, thoracic spine, hips knees and ankles. Increased uptake about the right breast may be postsurgical in nature. IMPRESSION: No evidence for metastatic disease to the bone at this time.
== END ==
LOC: RADNMMAIN 09:56
PROVIDERS: ATTEND Internal Medicine Hematology & Oncology
DX: C50.211 Malignant neoplasm of upper-inner quadrant of right female breast (principal)
CPT/HCPCS: 78306; A9503

== ENCOUNTER → 2019-02-20 | Outpatient (CLI) | payer BC ==
--- NOTE | 2019-02-21 07:55 | MM ---
Reason for exam: follow-up at short interval from prior study. Last mammogram was performed 6 months ago. History: Patient is postmenopausal, has history of breast cancer at age 57, and is nulliparous. Malignant US biopsy breast VAD RT of the right breast, August 30, 2017. Malignant US biopsy breast add'l VAD RT of the right breast, August 30, 2017. Took hormonal contraceptives for 21 years beginning at age 24. Physical Findings: Nurse did not find any significant physical abnormalities on exam. MG 3D Diag Mammo W/Cad RT CC and MLO view(s) were taken of the right breast. Prior study comparison: August 21, 2018, bilateral MG 3d diag mammo w/cad VON. August 30, 2017, right breast MG diagnostic mammo RT wo CAD. The breast tissue is heterogeneously dense. This may lower the sensitivity of mammography. Skin thickening is present. These results were verbally communicated with the patient and result sheet given to the patient on 02/20/19. ASSESSMENT: Benign, BI-RAD 2 RECOMMENDATION: Routine screening mammogram of both breasts in 6 months. Back on schedule.
== END | disposition home or self-care (01) ==
LOC: RADMAMWWP 15:23
PROVIDERS: ATTEND Radiology Radiation Oncology
DX: C50.211 Malignant neoplasm of upper-inner quadrant of right female breast (principal); C77.3 Secondary and unspecified malignant neoplasm of axilla and upper limb lymph nodes; Z92.21 Personal history of antineoplastic chemotherapy; Z98.890 Other specified postprocedural states
CPT/HCPCS: 77061; 77065

== ENCOUNTER 2019-05-23 08:47 | Day surgery (SDC) | payer BC ==
[2019-05-23 09:24] VITALS: RESP 16; TEMP 98
[2019-05-23] MEDS ORDERED: ALPRAZolam 0.5 MG TAB PO STA (09:25)
[2019-05-23 11:18] VITALS: BP 152/78; PULSE 76
--- NOTE | 2019-05-23 18:12 | US ---
EXAMINATION TYPE: US FNA first lesion, US biopsy lymph node DATE OF EXAM: 05/23/2019 HISTORY: Left supraclavicular mass, abnormal PET/CT. FINDINGS: Maximal barrier technique was utilized. The skin overlying a suitable path to the patient' s left supraclavicular mass was localized with ultrasound and the overlying skin prepped and draped. Ultrasound was utilized with sterile technique. Lidocaine was used for local anesthesia. 4 passes w ith a 25-gauge needle were made under ultrasound guidance and aspirated specimen submitted to cytolog y. A skin georgie was made with a scalpel. An 20-gauge needle was advanced under direct ultrasound guid ance and core specimen obtained of the mass, additional pass was performed with a 20-gauge needle. Radha collins submitted in formalin to Pathology. Following the procedure, hemostasis achieved and the pat ient is discharged in stable condition without complication. IMPRESSION:STATUS POST ULTRASOUND GUIDED CORE AND FINE-NEEDLE ASPIRATION BIOPSY OF left supraclavicul ar MASS, PATHOLOGY IS PENDING. THIS PROCEDURE IS PERFORMED BY THE UNDERSIGNED.
== END 2019-05-23 11:15 | disposition home or self-care (01) ==
LOC: RADPROMAIN 08:47
PROVIDERS: ATTEND Family Medicine
DX: C77.0 Secondary and unspecified malignant neoplasm of lymph nodes of head, face and neck (principal)
CPT/HCPCS: 10005; 38505; 76942; 88173; 88305; 88341; 88342

== ENCOUNTER 2019-06-06 09:51 | Day surgery (SDC) | payer BC ==
[2019-05-31 12:57] VITALS: BMI 32.5
--- NOTE | 2019-06-06 07:40 | P.GSHP ---
History of Present Illness H&P Date: 06/06/19 CHIEF COMPLAINT: GERD HISTORY OF PRESENT ILLNESS: The patient is a 58-year-old female who presents reports gastroesophageal reflux disease. Upper endoscopy was offered for further evaluation and management. PAST MEDICAL HISTORY: Please see list. PAST SURGICAL HISTORY: Please see list. MEDICATIONS: Please see list. ALLERGIES: Please see list. SOCIAL HISTORY: No illicit drug use FAMILY HISTORY: No reports of Crohn disease or ulcerative colitis. REVIEW OF ORGAN SYSTEMS: CONSTITUTIONAL: No reports of fevers or chills. GI: Denies any blood in stools or constipation. PHYSICAL EXAM: VITAL SIGNS: Stable GENERAL: Well-developed and pleasant in no acute distress. HEENT: No scleral icterus. Extraocular movements grossly intact. Moist buccal mucosa. NECK: Supple without lymphadenopathy. CHEST: Unlabored respirations. Equal bilateral excursions. CARDIOVASCULAR: Regular rate and rhythm. Distal 2+ pulses. ABDOMEN: Soft, nondistended. MUSCULOSKELETAL: No clubbing, cyanosis, or edema. ASSESSMENT: 1. Gastroesophageal reflux disease PLAN: 1. Recommend proceeding with an upper endoscopy Past Medical History Past Medical History: Cancer, GERD/Reflux, Hypertension Additional Past Medical History / Comment(s): breast CA, bone lesion iliac History of Any Multi-Drug Resistant Organisms: None Reported Past Surgical History: Breast Surgery, Uterine Ablation Additional Past Surgical History / Comment(s): iliac biopsy, february 2018 rt breast surgery Past Anesthesia/Blood Transfusion Reactions: No Reported Reaction Additional Past Anesthesia/Blood Transfusion Reaction / Comment(s): hard time waking up Smoking Status: Former smoker - Past Family History Sister(s) Family Medical History: Hypertension Medications and Allergies Home Medications Medication Instructions Recorded Confirmed Type Aspirin EC [Ecotrin Low Dose] 81 mg PO DAILY 05/24/17 05/31/19 History Esomeprazole Magnesium [NexIUM] 40 mg PO DAILY 05/24/17 05/31/19 History Flaxseed Oil [Cullen-3 Flaxseed Oil] 1,300 mg PO DAILY 05/24/17 05/31/19 History Multivitamins, Thera [Multivitamin 1 tab PO DAILY 05/24/17 05/31/19 History (formulary)] Losartan Potassium [Cozaar] 50 mg PO DAILY 08/23/17 05/31/19 History Allergies Allergy/AdvReac Type Severity Reaction Status Date / Time adhesive tape Allergy Rash/Hives Verified 05/31/19 12:49
--- NOTE | 2019-06-06 08:32 | P.HPADDEND ---
H&P Addendum H&P Addendum Date: 06/06/19 Patient is here for Port-A-Cath for breast cancer not GERD
[~2019-06-06 09:51] MED LIST: DEXAMETHASONE SOD PHOSPHATE 10 MG/ML 1 ML VIAL IV ONE; LACTATED RINGERS 1,000 ML IV SCH; LIDOCAINE 1% 20 ML VIAL (10MG/ML) FOR IV START INTRADERMA PRN; MORPHINE SULFATE 2 MG/ML SYRINGE IV PRN; ONDANSETRON 4 MG/2 ML VIAL IVP ONE; ONDANSETRON 4 MG/2 ML VIAL IVP PRN; Pre Op ABX Message 1 EACH MISC MISCELLANE ONE
[2019-06-06] MEDS ORDERED: PROPOFOL 10 MG/ML 20 ML VIAL IV ONE (11:03)
[2019-06-06] MEDS ORDERED: MIDAZOLAM 2 MG/2 ML VIAL ONE (11:03)
[2019-06-06] MEDS ORDERED: fentaNYL (PF) 50 MCG/ML 2 ML AMP ONE (11:03)
[2019-06-06] MEDS ORDERED: GLYCOPYRROLATE 0.2 MG/ML 2 ML VIAL ONE (11:03)
[2019-06-06] MEDS ORDERED: KETAMINE 10 MG/ML 20 ML VIAL ONE (11:03)
[2019-06-06] MEDS ORDERED: HEPARIN SODIUM,PORCINE 100 UNIT/ML 5 ML VIAL IV ONE ×2 (11:32→11:53)
[2019-06-06] MEDS ORDERED: BUPIVACAINE (PF) 0.5% 30 ML VIAL SQ ONE ×2 (11:35→11:53)
[2019-06-06] MEDS ORDERED: HEPARIN SODIUM,PORCINE 10,000 UNIT/ML 1 ML VIAL IV ONE (11:53)
--- NOTE | 2019-06-06 12:36 | P.OP ---
Date of Procedure: 06/06/19 Description of Procedure: SURGEON: ARLEEN GONZALES MD SERVICE STATION MANAGER: None. PREOPERATIVE DIAGNOSES: 1. Breast cancer, right 2. Need for chemotherapeutic access. 3. Obesity due to excess calories, BMI 32.6 4. Hypertensive heart disease 5. Gastroesophageal reflux disease POSTOPERATIVE DIAGNOSES: 1. Breast cancer, right 2. Need for chemotherapeutic access. 3. Obesity due to excess calories, BMI 32.6 4. Hypertensive heart disease 5. Gastroesophageal reflux disease PROCEDURES PERFORMED: 1. Ultrasound guided central venous access of the right internal jugular venous vein. 2. Fluoroscopic guidance for central venous access right internal jugular vein over 2 seconds. 3. Placement of right internal jugular power port 6 [place] by [employer], [employer] Plus Port ANESTHESIA: IV sedation with local. ESTIMATED BLOOD LOSS: 20 mL. SPECIMENS REMOVED: None. COMPLICATIONS: None. INDICATIONS: The patient is a 58-year-old female recently diagnosed with breast cancer. She presents for chemotherapeutic access. Benefits and risks of surgical intervention were described including bleeding, infection, mechanical problems with his port. Informed consent was obtained. DESCRIPTION OR PROCEDURE: Patient was brought into the operating room, laid in supine position. After adequate IV sedation, the chest and right neck were prepped and draped in a standard sterile fashion including the shoulder with ChloraPrep. Timeout protocol was confirmed with the surgical team regarding the patient's name, procedure to be performed including preoperative medications for which she received IV antibiotics. Bilateral SCDs were placed. An ultrasound was used to capture views of the right internal jugular vein including right carotid artery, which was patent and without thrombus along its course. The right IJ was then localized using anesthetic for the skin. A 16 [place] needle was used to access the IJ. A guidewire was advanced into the IJ with dark nonpulsatile venous blood. Two fingerbreadths distal to the clavicle, on the lateral third, a transverse 1.5 to 2 cm incision was deepened into the skin after localizing the skin. A pocket was created for the port. The port on the back table was flushed with heparinized saline and then attached to the catheter tubing. An adapter was fastened to the actual port site over the tubing. The port easily had fit snug into the pocket. A subcutaneous tunneler was placed along the open end of the tubing and brought out through the separate stab incision. Fluoroscopic guidance confirmed no kinking along the tubing and the port site. Next, the J-wire was exchanged for a catheter sheath for which the tubing was cut to 23 cm and then advanced through the catheter sheath. The Peel-away sheath was then removed and the tubing was secured at the junction of the superior vena cava as well as the right atrium. The tubing was found to be crossed however functional. This was all done under fluoroscopic guidance over 2 seconds. Procedure length extended by very short thick neck and limited thoracic space Pullback as well as return and aspiration was obtained of the port site. The skin incision was closed using layers using 3-0 Vicryl for the subcu followed by 4-0 Monocryl in a running subcuticular fashion. At the stick site this was also reapproximated using 4-0 Monocryl. The incisions were covered with Optifoam, The skin was cleansed and Exofin liquid glue was applied. Optifoam dressing was placed over the port site. A total of 20 mL of local anesthetic was placed. At the end of the procedure, needle, sponge, and instrument count was verified correct by surgical aides teacher. Heparin lock of 5 mL was placed. The patient was awoken and pain free and taken to the second stage postanesthesia care unit. The patient tolerated the procedure well. FINDINGS: 1. No thrombus encountered along the right carotid artery or internal jugular vein. 2. Access of the right internal jugular vein under ultrasound guidance. 3. Fluoroscopy of over 2 seconds. 4. Procedure length extended by very short thick neck and limited thoracic space 5. Prior to completion of case, free pullback and flush performed of port Plan - Discharge Summary Discharge Rx Participant: No New Discharge Prescriptions: New Acetaminophen [Tylenol] 325 mg PO Q4H #30 tab Discontinued Multivitamins, Thera [Multivitamin (formulary)] 1 tab PO DAILY Flaxseed Oil [Holt-3 Flaxseed Oil] 1,300 mg PO DAILY No Action Esomeprazole Magnesium [NexIUM] 40 mg PO DAILY Aspirin EC [Ecotrin Low Dose] 81 mg PO DAILY Losartan Potassium [Cozaar] 50 mg PO DAILY Discharge Medication List Aspirin EC [Ecotrin Low Dose] 81 mg PO DAILY 05/24/17 [History] Esomeprazole Magnesium [NexIUM] 40 mg PO DAILY 05/24/17 [History] Losartan Potassium [Cozaar] 50 mg PO DAILY 08/23/17 [History] Acetaminophen [Tylenol] 325 mg PO Q4H #30 tab 06/06/19 [Rx] Follow up Appointment(s)/Referral(s): Arleen Gonzales MD [STAFF PHYSICIAN] - As Needed Patient Instructions/Handouts: *Surgery [facility] - (Anesthesia) Discharge Instructions Outpatient Surgery, Implanted Venous Access Port (DC), Tunneled Central Lines in Adult (DC) Activity/Diet/Wound Care/Special Instructions: Please limit elevation including circular motions of right shoulder to prevent dislodgment of port. Limit elevation of right arm to elbow. Discharge Disposition: HOME SELF-CARE
[2019-06-06] MEDS ORDERED: NALOXONE 0.4 MG/ML 1 ML VIAL IV PRN (12:37)
[2019-06-06 12:42] VITALS: TEMP 97
--- NOTE | 2019-06-06 13:16 | XR ---
EXAMINATION TYPE: XR chest 1V portable DATE OF EXAM: 06/06/2019 COMPARISON: Prior chest x-ray dated 08/16/2011 HISTORY: Status post Port-A-Cath placement TECHNIQUE: Single frontal view of the chest is obtained. FINDINGS: There is been interval placement of a port in the right pectoral region via the internal j ugular approach the distal tip is near the cavoatrial junction level. There is no evident pneumothora x or pleural effusion. Technique somewhat apical lordotic and rotated. Surgical clips are present in the right breast region. Entire catheter is not included on exam. IMPRESSION: No evident complication status post central venous catheter placement.
[2019-06-06 13:26] VITALS: BP 154/78; PULSE 60; RESP 18
--- NOTE | 2019-06-06 13:33 | FL ---
Fluoroscopy HISTORY: Port-A-Cath placement 1 seconds fluoroscopy time supplied to the referring clinician. 1 intraoperative C-arm images docume nt the procedure. See dictated report from general surgery.
== END 2019-06-06 13:38 | disposition home or self-care (01) ==
LOC: OR 09:51
PROVIDERS: ATTEND Surgery Plastic and Reconstructive Surgery
DX: C50.911 Malignant neoplasm of unspecified site of right female breast (principal); I11.9 Hypertensive heart disease without heart failure; E66.09 Other obesity due to excess calories; Z68.32 Body mass index [BMI] 32.0-32.9, adult; K21.9 Gastro-esophageal reflux disease without esophagitis; Z87.891 Personal history of nicotine dependence; Z79.82 Long term (current) use of aspirin; Z79.899 Other long term (current) drug therapy; Z91.048 Other nonmedicinal substance allergy status
CPT/HCPCS: 36561; 77001; 71045; C1788; J2250; J1644; J1642; J1100; J0690; J2405; J3010; J2704

== ENCOUNTER → 2019-08-21 | Outpatient (CLI) | payer BC ==
--- NOTE | 2019-08-21 11:10 | MR ---
EXAMINATION TYPE: MR brain wo/w con DATE OF EXAM: 08/21/2019 COMPARISON: None HISTORY: Lung Cancer / Headaches TECHNIQUE: Multiplanar, multisequence images of the brain and brainstem is performed without and with IV contras t, utilizing 8.5 mL intravenous Gadavist . FINDINGS: Diffusion weighted images demonstrate no evidence of a recent infarct or other diffusion ab normality. The ventricular system and cisternal spaces are normal in size and appearance. The brain volume is age appropriate. Midline structures demonstrate normal morphology. The craniocervical junction appears within normal limits. Post contrast images demonstrate no abnormal enhancement. The dural venous sinuses appear pa tent. Changes of chronic sinusitis noted. Partially empty sella turcica incidentally noted. Tiny focal area of abnormal signal involving the right basal ganglia most typical of a tiny remote lacunar infarct. Mild prominence of the tip of the basilar artery. There is mild generalized degenerative change with multifocal areas of scattered abnormal signal whit e matter all measuring 5 mm less. The largest seen measuring 5 mm in the superior right parietal whit e matter. No midline shift or mass effect. No enhancing lesions. IMPRESSION: 1. No diagnostic evidence of intracranial metastases. 2. incidental note made of partially empty sella turcica. There is mild prominence of the basilar tip for which MRA [place] is recommended to exclude small aneurysm. 3. Mild chronic sinusitis. 4 nonspecific scattered tiny areas of abnormal signal the white matter can be seen with hypertension, migraine headaches, microvascular remote ischemia. Demyelinating process not entirely excluded.
== END | disposition home or self-care (01) ==
LOC: RADMRIMAIN 08:40
PROVIDERS: ATTEND Internal Medicine Hematology & Oncology
DX: C50.211 Malignant neoplasm of upper-inner quadrant of right female breast (principal); R90.82 White matter disease, unspecified; R51 Headache
CPT/HCPCS: 70553; A9585

== ENCOUNTER → 2019-09-11 | Day surgery (SDC) | payer BC ==
[2019-09-07 16:09] VITALS: BMI 33.6
[2019-09-11 11:12] VITALS: PULSE 89; TEMP 98.4
[2019-09-11 12:20] VITALS: BP 145/76; RESP 18
--- NOTE | 2019-09-11 15:40 | IR ---
Port-A-Cath gram HISTORY: Abnormal physical exam, possible occlusion, leak at Port-A-Cath site. The indwelling Port-A-Cath was cannulated with a needle by the interventional nurse. Gentle hand inje ction of contrast material was performed under fluoroscopic observation. There is no immediate applic ation. Patient remained in stable condition. Catheter was flushed with heparinized flush following th e procedure and discharged without complication. 0.4 minutes fluoroscopy time, 255 intraoperative images. The port fills with contrast, the catheter shows a right jugular central venous approach. The distal tip the catheter is in the right atrium. There is no leak. Contrast material courses from the distal end of the catheter. IMPRESSION: Normal Port-A-Cath gram. Correlate for possible cellulitis at the access site.
== END ==
LOC: CATHCVL 10:53
PROVIDERS: ATTEND Radiology Diagnostic Radiology
DX: T82.514A Breakdown (mechanical) of infusion catheter, initial encounter (principal); C50.911 Malignant neoplasm of unspecified site of right female breast; Z79.82 Long term (current) use of aspirin; Z79.899 Other long term (current) drug therapy; Z80.42 Family history of malignant neoplasm of prostate; R53.83 Other fatigue; G47.00 Insomnia, unspecified; R63.4 Abnormal weight loss; Z68.33 Body mass index [BMI] 33.0-33.9, adult; R61 Generalized hyperhidrosis
CPT/HCPCS: 36598; J1642

== ENCOUNTER → 2019-09-15 | Outpatient (CLI) | payer BC ==
--- NOTE | 2019-09-17 10:52 | PE ---
EXAMINATION TYPE: PET CT fusion skull to thigh DATE OF EXAM: 09/15/2019 COMPARISON: PET/CT dated 04/28/2019 HISTORY: Right breast carcinoma in 2018 treated with lumpectomy and radiation therapy. Subsequent wojciech atment strategy. TECHNIQUE: Following the intravenous administration of 12.48 mCi of F-18 FDG, whole body images are performed from the skull base to the midthigh. Images are reviewed on the computer in the coronal, a xial, and sagittal planes. Reconstructed rotating images are created on independent workstation and reviewed on the computer. A localization and attenuation correction CT is performed in conjunction with the PET scan. SCAN: Subsequent FINDINGS: Mediastinal background: 3.56 Abdominal background: 2.04 SKULL BASE AND NECK: There is marked interval worsening of the left supraclavicular adenopathy with a conglomeration of lymph nodes measuring 2.0 x 3.9 cm on series 3 image 56 and just medial and infer ior to this on image 59 measuring 1.9 x 2.1 cm. 12.77 and 8.25 SUVs are respectively. The larger lymp h node conglomeration on the prior PET/CT of 04/28/2019 measured up to 1.4 cm and the smaller lymph no de conglomeration was not visualized. The larger more avid conglomeration of lymph nodes have a prior SUV of 4.4 on the exam of 04/28/2019. CHEST, MEDIASTINUM, AND HILAR REGION: No suspicious hypermetabolic focus. Posttreatment changes seen in the right breast with focal avidity of the lower inner quadrant and the skin, also likely posttrea tment. This has a maximum SUV of 4.32. Targeted ultrasound could be considered in addition to physica l examination. Skin thickening measures up to 1.2 cm. ABDOMEN AND PELVIS: The liver avidity is diffusely heterogenous. Hypoattenuated left hepatic lobe les ion on image 109 measures 4 mm and is too small to accurately characterize. This demonstrates no incr eased avidity and is stable from the prior, likely a small cyst. OSSEOUS STRUCTURES: Probable bone islands in the right hemipelvis are stable. These are also seen in the femoral heads. OTHER CT: Right-sided Mediport is present. Moderate degenerative changes of the spine. Post therapy c hanges of the right breast are seen. Small hiatal hernia. Few blebs of emphysematous change are scatt ered. Subsegmental dependent atelectasis is seen. Small periumbilical fat-containing hernia. IMPRESSION: 1. Worsening left supraclavicular adenopathy both by size criteria and FDG avidity. 2. Posttreatment changes are seen of the right breast with slight focal uptake of the lower inner octavia drant skin surface, likely post radiation change. Given the uptake above regional background and foca lity targeted ultrasound could be considered with attention to the skin surface in the lower inner qu adrant. 3. No new evidence of osseous or visceral metastasis in the chest, abdomen, or pelvis and comparison to the prior of 04/28/2019.
== END | disposition home or self-care (01) ==
LOC: RADPETMAIN 10:37
PROVIDERS: ATTEND Internal Medicine Hematology & Oncology
DX: C50.211 Malignant neoplasm of upper-inner quadrant of right female breast (principal); R59.9 Enlarged lymph nodes, unspecified; Z98.890 Other specified postprocedural states
CPT/HCPCS: 78815; A9552

== ENCOUNTER → 2020-02-29 | Outpatient (CLI) | payer BC ==
--- NOTE | 2020-03-03 09:28 | PE ---
EXAMINATION TYPE: PET CT fusion skull to thigh DATE OF EXAM: 02/29/2020 COMPARISON: No recent CTs. Prior PET/CT: Most recent 09/15/2019 HISTORY: Right breast cancer TECHNIQUE: Following the intravenous administration of 12.3 mCi of F-18 FDG, whole body images are p erformed from the skull base to the midthigh. Images are reviewed on the computer in the coronal, ax ial, and sagittal planes. Reconstructed rotating images are created on independent workstation and r eviewed on the computer. A localization and attenuation correction CT is performed in conjunction w ith the PET scan. DLP: 471.08 mGycm SCAN: Subsequent Blood glucose: 103 mg/dL Average Mediastinum SUV: 1.49 Average Liver SUV: 2.39 FINDINGS: NECK: No abnormal uptake THORAX: There is some mild uptake within an area of consolidation within the posterior left apex, jayden ge 66, SUV value 1.54. This is intermediate and can be related to inflammatory change. ABDOMEN: No abnormal uptake PELVIS: Some transient visualization of the ureters appears to be present. Suspicious uptake is not i dentified. OSSEOUS STRUCTURES: No abnormal uptake LOCALIZATION CT: Ascending thoracic aorta at the level the main pulmonary artery is 3.6 cm. The main pulmonary artery the bifurcation is 2.3 cm. Patient's right breast lumpectomy is evident. Small hiata l hernia is present. COMPARISON: Previous marked uptake within the left supraclavicular adenopathy has essentially resolve d. Some mild underlying prominence although diminished size of the lymphadenopathy is present. IMPRESSION: 1. There appears to be essentially resolution of the previous abnormal uptake within lymph nodes with in the left supraclavicular region. 2. No suspicious new or residual uptake to suggest metastatic disease is evident. 3. There is some new thickening at the left apex within a consolidation which has intermediate signal and SUV values. This is nonspecific and inflammatory changes as well as early metastatic disease wou ld be within the differential.
== END | disposition home or self-care (01) ==
LOC: RADPETMAIN 09:48
PROVIDERS: ATTEND Internal Medicine Hematology & Oncology
DX: C50.211 Malignant neoplasm of upper-inner quadrant of right female breast (principal)
CPT/HCPCS: 78815; A9552

== ENCOUNTER 2020-04-28 05:59 | Day surgery (SDC) | payer BC ==
[2020-04-24 13:30] VITALS: BMI 31.8
--- NOTE | 2020-04-28 05:55 | P.GSHP ---
History of Present Illness H&P Date: 04/28/20 CHIEF COMPLAINT: Breast cancer. HISTORY OF PRESENT ILLNESS: The patient is a 49-year-old female diagnosed with invasive breast cancer. She had a Mediport placement. She presents for Port-A-Cath removal upon completion of her chemotherapy. PAST MEDICAL HISTORY: Breast cancer. PAST SURGICAL HISTORY: Breast biopsy. CURRENT MEDICATIONS: See list. ALLERGIES: See list. SOCIAL HISTORY: No active tobacco or alcohol use. FAMILY HISTORY: Noncontributory. REVIEW OF ORGAN SYSTEMS: CONSTITUTIONAL: Denies any fever or chills. BREASTS: Please see above. PHYSICAL EXAMINATION: Vital signs: Stable GENERAL: Well developed female and in no acute distress. Pleasant. HEENT: No sclera icterus. Extraocular movements grossly intact. Moist buccal mucosa. Head is atraumatic, normocephalic. Hears conversational speech. No nasal drainage. NECK: Supple without lymphadenopathy. No JV distention. CHEST: Non-labored respirations and equal bilateral excursions. CARDIOVASCULAR: Regular rate and rhythm. Palpable 2+ radial pulses. ABDOMEN: Nontender. MUSCULOSKELETAL: No clubbing, cyanosis or edema. NEUROLOGIC: No focal or lateralizing signs. PSYCH: Appropriate affect. Alert and oriented to person, place and time. ASSESSMENT: 1. Breast cancer. 2. Need for chemotherapeutic access. PLAN: 1. Agree with Port-A-Cath removal per patient's request. Past Medical History Past Medical History: Cancer, GERD/Reflux, Hypertension Additional Past Medical History / Comment(s): RIGHT BREAST CANCER, HAS POWER PORT. HX OF CHEMO (10/2019) AND RADIATION TX (LAST 10/2019). History of Any Multi-Drug Resistant Organisms: None Reported Past Surgical History: Breast Surgery, Uterine Ablation Additional Past Surgical History / Comment(s): iliac biopsy, 02/2018 rt breast surgery, BREAST BX MAY 2019, POWER PORT (05/2019). Past Anesthesia/Blood Transfusion Reactions: Previous Problems w/ Anesthesia Additional Past Anesthesia/Blood Transfusion Reaction / Comment(s): hard time waking up in past, siblings said this ran in family years ago. Smoking Status: Former smoker - Past Family History Sister(s) Family Medical History: Hypertension Brother(s) Family Medical History: Cancer Additional Family Medical History / Comment(s): prostate cancer x2 brothers Medications and Allergies Home Medications Medication Instructions Recorded Confirmed Type Aspirin EC [Ecotrin Low Dose] 81 mg PO DAILY 05/24/17 04/24/20 History Esomeprazole Magnesium [NexIUM] 40 mg PO DAILY 05/24/17 04/24/20 History Losartan Potassium [Cozaar] 50 mg PO DAILY 08/23/17 04/24/20 History Multivitamins, Thera [Multivitamin 1 tab PO DAILY 09/07/19 04/24/20 History (formulary)] Capecitabine [Xeloda] 1,950 mg PO DAILY 04/24/20 04/24/20 History Allergies Allergy/AdvReac Type Severity Reaction Status Date / Time paper tape Allergy Unknown Rash/Hives Uncoded 04/24/20 13:10
[2020-04-28] MEDS ORDERED: MIDAZOLAM 2 MG/2 ML VIAL IV PRN (06:05)
[2020-04-28] MEDS ORDERED: DEXAMETHASONE SOD PHOSPHATE 10 MG/ML 1 ML VIAL IV ONE (06:05)
[2020-04-28] MEDS ORDERED: ONDANSETRON 4 MG/2 ML VIAL IVP ONE (06:05)
[2020-04-28] MEDS ORDERED: LACTATED RINGERS 1,000 ML IV SCH (06:05)
[2020-04-28] MEDS ORDERED: HYDROmorphone 0.5 MG/0.5 ML SYRINGE IVP PRN (06:05)
[2020-04-28 06:25] VITALS: TEMP 97
[2020-04-28] MEDS ORDERED: BUPIVACAIN-EPI 0.25%-1:200,000 30 ML VIAL SQ ONE ×2 (07:03→07:21)
[2020-04-28] MEDS ORDERED: fentaNYL (PF) 50 MCG/ML 2 ML AMP ONE (07:04)
[2020-04-28] MEDS ORDERED: PROPOFOL 10 MG/ML 20 ML VIAL IV ONE (07:04)
[2020-04-28] MEDS ORDERED: MIDAZOLAM 2 MG/2 ML VIAL ONE (07:04)
--- NOTE | 2020-04-28 07:59 | P.OP ---
Date of Procedure: 04/28/20 Description of Procedure: SURGEON: ARLEEN GONZALES MD CARE TRANSPORT NURSE: None. PREOPERATIVE DIAGNOSIS: 1. Breast cancer 2. Chemotherapeutic venous access. POSTOPERATIVE DIAGNOSIS: 1. Breast cancer 2. Chemotherapeutic venous access. 3. Mediport erosion, right chest wall OPERATION: 1. Removal of right internal jugular vein Port-A-Cath. 2. Excision of benign skin lesion 4 cm x 1.3 cm, right chest wall ANESTHESIA: MAC with 30 mL local ESTIMATED BLOOD LOSS: 1 mL SPECIMENS REMOVED: Port-A-Cath COMPLICATIONS: None. INDICATIONS: The patient is a 59-year-old female who completed chemotherapy for breast cancer. She now has elected for removal. Benefits and risks were described. Informed consent was obtained. DESCRIPTION OF PROCEDURE: Patient was brought to the operating room, laid in supine position. After IV sedation the chest wall on the left side was prepped and draped in standard sterile fashion. Prior to incision, a timeout protocol was confirmed with surgical team regarding the patient's name including procedures to be performed. As this was a clean case, no further antibiotics were required. Additionally, early ambulation was encouraged for DVT prophylaxis. Attention was brought to the area of the port site, where very thin skin over the port site was identified with signs of erosion. An elliptical transverse Marcaine was made around the port site erosion of the skin for complete excision. A total of 30 mL of local was infiltrated into the skin for a field b lock. An elliptical incision and excision of 4 cm x 1.3 cm around the Port-A-Cath site was made using #15 blade. Electro- Bovie cautery was used to control for hemostasis. Adhesions were lysed around the Mediport. The port was extracted without sequelae. Pressure for 2 minutes was placed along the right internal jugular vein. Hemostasis was checked along the pocket of the Port-A-Cath site. The wound was cleansed with diluted hydrogen peroxide. The wound was closed in layers using 0 Vicryl for the deep subcutaneous tissue followed by 3-0 Vicryl for the dermis and 4-0 Monocryl in a running subcuticular fashion for the skin. Liquid glue was applied to the skin. Once dried a 4 x 4 Optifoam was applied. At the end of the procedure needle, sponge and instrument counts were verified correct by the rn neurosurgical. The patient had tolerated the procedure well and was taken to postanesthesia care in stable condition. FINDINGS: 1. Full-thickness erosion right Mediport site to the dermis and excised 2. Unremarkable Port-a-cath extraction. Plan - Discharge Summary Discharge Rx Participant: No New Discharge Prescriptions: New Ibuprofen [Motrin] 600 mg PO Q8HR PRN #12 tab PRN Reason: Pain Continue Esomeprazole Magnesium [NexIUM] 40 mg PO DAILY Aspirin EC [Ecotrin Low Dose] 81 mg PO DAILY Losartan Potassium [Cozaar] 50 mg PO DAILY Multivitamins, Thera [Multivitamin (formulary)] 1 tab PO DAILY Capecitabine [Xeloda] 1,950 mg PO DAILY Discharge Medication List Aspirin EC [Ecotrin Low Dose] 81 mg PO DAILY 05/24/17 [History] Esomeprazole Magnesium [NexIUM] 40 mg PO DAILY 05/24/17 [History] Losartan Potassium [Cozaar] 50 mg PO DAILY 08/23/17 [History] Multivitamins, Thera [Multivitamin (formulary)] 1 tab PO DAILY 09/07/19 [History] Capecitabine [Xeloda] 1,950 mg PO DAILY 04/24/20 [History] Ibuprofen [Motrin] 600 mg PO Q8HR PRN #12 tab 04/28/20 [Rx] Follow up Appointment(s)/Referral(s): Arleen Gonzales MD [STAFF PHYSICIAN] - As Needed Patient Instructions/Handouts: *Surgery [facility] - (Anesthesia) Discharge Instructions Outpatient Surgery, Implanted Venous Access Port (DC), Central Line Removal (DC) Activity/Diet/Wound Care/Special Instructions: May shower. No bathtub soaks for 2 weeks until 05/12/20. Remove dressing 05/03/19. Sleep on elevated pillows at least 3 for 3 days. Bruising is normal and subsides in 2 weeks. Take Tylenol or Motrin regularly for 24 hrs for pain, if needed. Use ice along incision to decrease swelling. Discharge Disposition: HOME SELF-CARE
[2020-04-28 08:03] VITALS: RESP 17
[2020-04-28 08:17] VITALS: BP 113/78; PULSE 72
== END 2020-04-28 08:57 | disposition home or self-care (01) ==
LOC: OR 05:59
PROVIDERS: ATTEND Surgery Plastic and Reconstructive Surgery
DX: Z45.2 Encounter for adjustment and management of vascular access device (principal); L90.5 Scar conditions and fibrosis of skin; T81.89XA Other complications of procedures, not elsewhere classified, initial encounter; Z92.21 Personal history of antineoplastic chemotherapy; Z85.3 Personal history of malignant neoplasm of breast; I10 Essential (primary) hypertension; K21.9 Gastro-esophageal reflux disease without esophagitis; Z91.048 Other nonmedicinal substance allergy status; Z79.82 Long term (current) use of aspirin; Z79.899 Other long term (current) drug therapy; Z98.890 Other specified postprocedural states; Z92.3 Personal history of irradiation; Z87.891 Personal history of nicotine dependence; Z82.49 Family history of ischemic heart disease and other diseases of the circulatory system; Z80.42 Family history of malignant neoplasm of prostate
CPT/HCPCS: 88305; 11404; 36590; J2250; J1100; J0690; J2405; J3010; J2704

== ENCOUNTER → 2020-09-09 | Outpatient (CLI) | payer BC ==
[2020-09-09 10:51] LABS: African American GFR (CKD) >90 (>60 ml/min/1.73 sqM); Blood Urea Nitrogen 14 mg/dL (7-17); Non-African American GFR(CKD) >90 (>60 ml/min/1.73 sqM)
--- NOTE | 2020-09-09 20:12 | CT ---
EXAMINATION TYPE: CT ChestAbdPelvis w con DATE OF EXAM: 09/09/2020 COMPARISON: PET/CT 02/29/2020 HISTORY: Breast Cancer CT DLP: 1008.10 mGycm Automated exposure control for dose reduction was used. CONTRAST: CT scan of the chest, abdomen and pelvis is performed with Oral Contrast and with IV Contrast, patien t injected with 100 ml mL of Isovue 300. FINDINGS: LUNGS: Lungs are grossly clear. No concerning parenchymal mass or nodule identified. There is linear scarring of the left apex, which is more linear and thinner in size versus 02/29/[address] compariso n. No pleural effusion. No pneumothorax. The tracheobronchial tree is patent. MEDIASTINUM/SOFT TISSUES: No axillary, hilar, or mediastinal lymphadenopathy greater than 1 cm. Cardi ac size is normal. No pericardial effusion. No thoracic aortic aneurysm. LIVER: Tiny too small to characterize hypodense lesion of the left liver redemonstrated (5:10). BILIARY SYSTEM: Normal. PANCREAS: Normal. SPLEEN: Normal. ADRENALS: Normal. KIDNEYS: Too small to characterize hypodense lesions of the right kidney. No hydronephrosis. BOWEL: Small hiatal hernia. No obstruction or thickening. Mild submucosal prominent fat of the distal transverse colon may be due to incomplete distention. PERITONEUM: No pneumoperitoneum. No free fluid. LYMPH NODES: No lymphadenopathy. PELVIS: Normal. VASCULATURE: No abdominal aortic aneurysm. MUSCULOSKELETAL: No aggressive osseous destructive lesions. Degenerative changes of the spine. Right breast postsurgical lumpectomy changes. IMPRESSION: No evidence of metastatic breast cancer of the chest, abdomen, or pelvis.
== END | disposition home or self-care (01) ==
LOC: RADCTMAIN 09:46
PROVIDERS: ATTEND Internal Medicine Hematology & Oncology
DX: C50.211 Malignant neoplasm of upper-inner quadrant of right female breast (principal); Z92.21 Personal history of antineoplastic chemotherapy
CPT/HCPCS: 82565; 84520; 71260; 74177; 36415; Q9967

== ENCOUNTER → 2020-11-27 | Outpatient (CLI) | payer BC ==
--- NOTE | 2020-11-28 11:35 | MM ---
Reason for exam: screening (asymptomatic). Last mammogram was performed 1 year and 9 months ago. History: Patient is postmenopausal, has history of other cancer at age 58, has history of breast cancer at age 57, and is nulliparous. Malignant US biopsy breast VAD RT of the right breast, August 30, 2017. Malignant US biopsy breast add'l VAD RT of the right breast, August 30, 2017. Took hormonal contraceptives for 21 years beginning at age 24. Physical Findings: A clinical breast exam by your physician is recommended on an annual basis and results should be correlated with mammographic findings. MG 3D Screening Mammo W/Cad Bilateral CC and MLO view(s) were taken. Prior study comparison: February 20, 2019, right breast MG 3d diag mammo w/cad RT. August 21, 2018, bilateral MG 3d diag mammo w/cad VON. There are scattered fibroglandular densities. There is post operative changes in the right breast. Stable skin thickening on right breast. Benign appearing bilateral calcifications. ASSESSMENT: Benign, BI-RAD 2 RECOMMENDATION: Routine screening mammogram of both breasts in 1 year.
== END | disposition home or self-care (01) ==
LOC: RADMAMWWP 16:39
PROVIDERS: ATTEND Surgery
DX: Z12.31 Encounter for screening mammogram for malignant neoplasm of breast (principal); Z85.3 Personal history of malignant neoplasm of breast
CPT/HCPCS: 77063; 77067

== ENCOUNTER → 2021-02-03 | Outpatient (CLI) | payer BC ==
[2021-02-03 12:10] LABS: African American GFR (CKD) >90 (>60 ml/min/1.73 sqM); Blood Urea Nitrogen 21 mg/dL (7-17); Non-African American GFR(CKD) >90 (>60 ml/min/1.73 sqM)
--- NOTE | 2021-02-03 18:46 | CT ---
EXAMINATION TYPE: CT ChestAbdPelvis w con DATE OF EXAM: 02/03/2021 INDICATION: Breast Cancer COMPARISON: 09/09/2020 CT DLP: 1812 mGycm CONTRAST: Performed with Oral Contrast and with IV Contrast, patient injected with 100 ml mL of Isovue 300. TECHNIQUE: Axial images at 5 mm thick sections. Reconstructed images in the coronal plane. Delayed images through the kidneys. FINDINGS: CT CHEST: Patient's right breast biopsy site is identified. There is thickening along the anterior ri ght breast and in the subareolar region. Portion of the thyroid visualized is normal. No suspicious lung nodules or focal infiltrates are present. Some linear opacities at the left apex, stable from prior. No enlarged mediastinal or hilar adenopathy is evident. The ascending aorta diameter at the level of the main pulmonary artery is 3.4 cm. The main pulmonary artery diameter at the bifurcation is 2.[address] ABDOMEN: Liver: There is mild fatty infiltration liver. A punctate hypodensity in the anterior right lobe may be a tiny hepatic cyst. Spleen: Normal Pancreas: Normal Adrenal glands: The adrenal glands are normal. Gallbladder: Normal Kidneys: No masses are evident. No hydronephrosis is present. No cysts are present. Delayed images were obtained through the kidneys, which remain unremarkable. Aorta: Normal Inferior vena cava: Normal. CT PELVIS: Loops of bowel within the abdomen and pelvis are normal. There are loops of bowel which are incom pletely distended or lack oral contrast limiting their evaluation. Appendix: Normal as visualized. Urinary bladder: Decompressed and cannot be evaluated Genitourinary structures: Uterus is normal. Adnexal regions are clear. Osseous structures: No suspicious lytic or sclerotic lesions. Bone island may be in the posterior rig ht acetabulum. IMPRESSIONS: 1. No suspicious changes to suggest metastatic disease. 2. Mild fatty infiltration of the liver.
== END | disposition home or self-care (01) ==
LOC: RADCTMAIN 11:24
PROVIDERS: ATTEND Internal Medicine Hematology & Oncology
DX: Z03.89 Encounter for observation for other suspected diseases and conditions ruled out (principal); C50.211 Malignant neoplasm of upper-inner quadrant of right female breast; K76.0 Fatty (change of) liver, not elsewhere classified
CPT/HCPCS: 82565; 84520; 71260; 74177; 36415; Q9967

== ENCOUNTER → 2021-08-04 | Outpatient (CLI) | payer BC ==
[2021-08-04 11:52] LABS: African American GFR (CKD) >90 (>60 ml/min/1.73 sqM); Blood Urea Nitrogen 14 mg/dL (7-17); Non-African American GFR(CKD) >90 (>60 ml/min/1.73 sqM)
--- NOTE | 2021-08-04 13:42 | CT ---
EXAMINATION TYPE: CT ChestAbdPelvis w con DATE OF EXAM: 08/04/2021 COMPARISON: 02/03/2021 HISTORY: breast CA CT DLP: 1649 mGycm CONTRAST: CT scan of the chest, abdomen and pelvis is performed with Oral Contrast and with IV Contrast, patien t injected with 100 mL of Isovue 300. CT Chest: LUNGS: The lungs are clear and free of infiltrate or atelectasis. No pulmonary nodule or mass is det ected. No pleural effusion or CT evidence of interstitial lung disease. MEDIASTINUM: Thoracic aorta is of normal caliber. The heart is not enlarged. No evidence for media stinal mass or adenopathy. Small hiatal hernia noted. HILAR STRUCTURES: No evidence for mass. No hilar adenopathy is appreciated. OTHER: No significant abnormality. CONTRAST CT ABDOMEN AND PELVIS FINDINGS: LIVER/GB: Mild hepatic steatosis. No calcified gallstones. No space occupying hepatic lesion. Bili maciej tree is of normal caliber. PANCREAS: No inflammation. No distinct mass. SPLEEN: No splenic enlargement. No lesion seen. ADRENALS: No nodule. No thickening. KIDNEYS/BLADDER: No hydronephrosis. No nephrolithiasis. No disctinct renal mass. BOWEL: Normal appendix. Normal bowel caliber. No inflammation. GENITAL ORGANS: No gross abnormality. LYMPH NODES: No greater than 1cm abdominal or pelvic lymph nodes are appreciated. AORTA: No significant abnormality. OSSEOUS STRUCTURES: No significant abnormality is seen. OTHER: No significant additional abnormality is seen. IMPRESSION: 1. No evidence for metastatic disease. 2. Hepatic steatosis.
== END | disposition home or self-care (01) ==
LOC: RADCTMAIN 11:04
PROVIDERS: ATTEND Internal Medicine Hematology & Oncology
DX: Z03.89 Encounter for observation for other suspected diseases and conditions ruled out (principal); C50.211 Malignant neoplasm of upper-inner quadrant of right female breast; K76.0 Fatty (change of) liver, not elsewhere classified
CPT/HCPCS: 82565; 84520; 71260; 74177; 36415; Q9967

== ENCOUNTER → 2022-02-05 | Outpatient (CLI) | payer BC ==
--- NOTE | 2022-02-06 10:55 | PE ---
EXAMINATION TYPE: PET CT fusion skull to thigh DATE OF EXAM: 02/05/2022 COMPARISON: Most recent CT August 04, 2021. Most recent PET/CT February 29, 2020 HISTORY: Right-sided breast cancer. TECHNIQUE: Following the intravenous administration of 8.29 mCi of F-18 FDG, whole body images are p erformed from the skull base to the midthigh. Images are reviewed on the computer in the coronal, ax ial, and sagittal planes. Reconstructed rotating images are created on independent workstation and r eviewed on the computer. A localization and attenuation correction CT is performed in conjunction w ith the PET scan. Blood glucose level was 102 SCAN: Subsequent Scan FINDINGS: SKULL BASE AND NECK: No new areas of abnormal hypermetabolic uptake. CHEST, MEDIASTINUM, AND HILAR REGION: Right-sided posttreatment changes redemonstrated axial image 78 . Redemonstration of persistent iohe-xl-jbllotly skin thickening over the right breast and mild subcu taneous edema. No new areas of abnormal hypermetabolic uptake with particular attention to the right breast and axillary region. ABDOMEN AND PELVIS: No new areas of abnormal hypermetabolic uptake. Normal excretion redemonstrated. Nonspecific bowel uptake right colon just above the common fragment is 157 without suspicious finding on most recent CT. No additional areas of abnormal hypermetabolic uptake. OSSEOUS STRUCTURES: No new of abnormal hypermetabolic uptake. OTHER CT: Focal linear scarring left lung apex redemonstrated. Visualized liver is low dense consistent with diffuse fatty infiltration. Small to moderate-sized fat -containing umbilical hernia is redemonstrated. IMPRESSION: No new suspicious areas of abnormal hypermetabolic uptake to suggest recurrent breast can cer local or metastatic malignancy.
== END | disposition home or self-care (01) ==
LOC: RADPETMAIN 10:35
PROVIDERS: ATTEND Internal Medicine Hematology & Oncology
DX: C50.211 Malignant neoplasm of upper-inner quadrant of right female breast (principal)
CPT/HCPCS: 78815; A9552

== ENCOUNTER → 2022-03-19 | Outpatient (CLI) | payer BC ==
--- NOTE | 2022-03-24 11:00 | MM ---
Reason for Exam: Screening (asymptomatic). Last mammogram was performed 1 year(s) and 4 month(s) ago. Patient History: Menarche at age 11. Patient has no children. Postmenopausal. Breast cancer, age 57. Other cancer, age 58. Hormonal Contraceptives for 21 years from age 24 until age 45. 08/30/2017, Malignant Core Biopsy on the right side. 08/30/2017, Malignant Core Biopsy on the right side. Film Views: Bilateral CC views were taken. Bilateral MLO views were taken. Left XCCL views were taken. Prior Study Comparison: 08/21/2018 Bilateral Diagnostic Mammogram, [facility]. 02/20/2019 Right Diagnostic Mammogram, [facility]. 11/27/2020 Bilateral Screening Mammogram, [facility]. Tissue Density: There are scattered fibroglandular densities. Findings: Analyzed By CAD. No significant changes when compared with prior studies. Post surgical and post therapy change right breast with Biozorb device redemonstrated. Overall Assessment: Benign, BI-RAD 2 Management: Screening Mammogram of both breasts in 1 year.
== END | disposition home or self-care (01) ==
LOC: RADMAMWWP 15:59
PROVIDERS: ATTEND Internal Medicine Hematology & Oncology
DX: Z12.31 Encounter for screening mammogram for malignant neoplasm of breast (principal)
CPT/HCPCS: 77063; 77067

== ENCOUNTER → 2022-08-27 | Outpatient (CLI) | payer BC ==
--- NOTE | 2022-08-29 09:08 | PE ---
EXAMINATION TYPE: PET CT fusion skull to thigh DATE OF EXAM: 08/27/2022 COMPARISON: Prior study February 05, 2022 and older studies. HISTORY: Right-sided breast cancer progress study. Originally diagnosed 2017 completed chemotherapy 2 018 TECHNIQUE: Following the intravenous administration of 11.02 mCi of F-18 FDG, whole body images are performed from the skull base to the midthigh. Images are reviewed on the computer in the coronal, a xial, and sagittal planes. Reconstructed rotating images are created on independent workstation and reviewed on the computer. A localization and attenuation correction CT is performed in conjunction with the PET scan. Blood glucose level equals 112 SCAN: Subsequent Scan FINDINGS: SKULL BASE AND NECK: No new areas of abnormal hypermetabolic uptake. CHEST, MEDIASTINUM, AND HILAR REGION: Right-sided posttreatment changes redemonstrated axial image 70 carotid study with focal dystrophic calcification and scarring. Redemonstration of persistent mild-t o-moderate skin thickening over the right breast and mild subcutaneous edema and trabeculation. Does have similar appearance to most recent PET/CT. No new areas of abnormal hypermetabolic uptake with pa rticular attention to the right breast and axillary region. ABDOMEN AND PELVIS: No new areas of abnormal hypermetabolic uptake. Normal excretion redemonstrated. Nonspecific bowel uptake left lower quadrant on current study. OSSEOUS STRUCTURES: No new of abnormal hypermetabolic uptake. OTHER CT: Focal linear scarring left lung apex redemonstrated. Visualized liver is low dense consistent with diffuse fatty infiltration. Small sized hiatal hernia r edemonstrated. Small to moderate sized fat-containing umbilical hernia is redemonstrated. Facet arthr opathy lower lumbar levels again seen. IMPRESSION: No new suspicious areas of abnormal hypermetabolic uptake to suggest recurrent local or m etastatic malignancy. No significant change from most recent PET/CT.
== END | disposition home or self-care (01) ==
LOC: RADPETMAIN 13:15
PROVIDERS: ATTEND Internal Medicine Hematology & Oncology
DX: C50.211 Malignant neoplasm of upper-inner quadrant of right female breast (principal)
CPT/HCPCS: 78815; A9552

== ENCOUNTER → 2022-12-08 | Outpatient (CLI) | payer BC ==
--- NOTE | 2022-12-08 11:48 | XR ---
EXAMINATION TYPE: XR Hip Limited LT DATE OF EXAM: 12/08/2022 COMPARISON: NONE HISTORY: Pain TECHNIQUE: 2 views submitted FINDINGS: There is no evidence of erosive change or acute fracture. Ipratropium changes of the acetabulum with mild concentric narrowing of the joint space. No destructi ve changes. Hypertrophic changes in the iliac wing appears chronic. IMPRESSION: 1. Mild arthropathy correlate for femoral acetabular impingement. No destructive changes.
== END | disposition home or self-care (01) ==
LOC: RADXRMAIN 10:07
PROVIDERS: ATTEND Internal Medicine Hematology & Oncology
DX: C50.211 Malignant neoplasm of upper-inner quadrant of right female breast (principal); M25.852 Other specified joint disorders, left hip; Z71.3 Dietary counseling and surveillance; G99.0 Autonomic neuropathy in diseases classified elsewhere; I10 Essential (primary) hypertension
CPT/HCPCS: 73501

== ENCOUNTER → 2023-03-04 | Outpatient (CLI) | payer BC ==
--- NOTE | 2023-03-04 14:00 | PE ---
EXAMINATION TYPE: PET CT fusion skull to thigh DATE OF EXAM: 03/04/2023 COMPARISON: Most recent PET/CT August 27, 2022 and older studies HISTORY: Right-sided breast cancer progress study. Originally diagnosed in 2017. Patient on daily micahel motherapy. Patient completed radiation treatment 2018. TECHNIQUE: Following the intravenous administration of 10.98 mCi of F-18 FDG, whole body images are performed from the skull base to the midthigh. Images are reviewed on the computer in the coronal, a xial, and sagittal planes. Reconstructed rotating images are created on independent workstation and reviewed on the computer. A localization and attenuation correction CT is performed in conjunction with the PET scan. Blood glucose level equals 117 SCAN: Subsequent Scan FINDINGS: SKULL BASE AND NECK: No new areas of abnormal hypermetabolic uptake. CHEST, MEDIASTINUM, AND HILAR REGION: Right-sided posttreatment changes redemonstrated axial image 96 current study with focal dystrophic calcification and scarring. Redemonstration of persistent mild t o moderate skin thickening over the right breast and mild subcutaneous edema and trabeculation medial ly with more prominent appearance inferiorly. This has similar appearance to most recent PET/CT. No n ew areas of abnormal hypermetabolic uptake with particular attention to the right breast and axillary region. ABDOMEN AND PELVIS: No new areas of abnormal hypermetabolic uptake. Normal excretion redemonstrated. OSSEOUS STRUCTURES: No new of abnormal hypermetabolic uptake. OTHER CT: Focal linear scarring left lung apex redemonstrated. Visualized liver is low dense consistent with diffuse fatty infiltration. Small sized hiatal hernia r edemonstrated. Small to moderate sized fat-containing umbilical hernia is redemonstrated. Facet arthr opathy lower lumbar levels again seen. IMPRESSION: No new suspicious areas of abnormal hypermetabolic uptake to suggest recurrent local or m etastatic malignancy. No significant change from most recent PET/CT.
== END | disposition home or self-care (01) ==
LOC: RADPETMAIN 09:41
PROVIDERS: ATTEND Internal Medicine Hematology & Oncology
DX: C50.211 Malignant neoplasm of upper-inner quadrant of right female breast (principal)
CPT/HCPCS: 78815; A9552

== ENCOUNTER → 2023-03-21 | Outpatient (CLI) | payer BC ==
--- NOTE | 2023-03-22 08:33 | MM ---
Reason for Exam: Screening (asymptomatic). Last screening mammogram was performed 12 month(s) ago. Patient History: Menarche at age 11. Patient has no children. Postmenopausal. Breast cancer, age 57. Other cancer, age 58. Hormonal Contraceptives for 21 years from age 24 until age 45. 08/30/2017, Malignant Core Biopsy on the right side. 08/30/2017, Malignant Core Biopsy on the right side. 2017, Radiation Therapy on the right side. 2016, Chemotherapy. Prior Study Comparison: 02/20/2019 Right Diagnostic Mammogram, [facility]. 11/27/2020 Bilateral Screening Mammogram, [facility]. 03/19/2022 Bilateral MG 3D screening mammo w/cad, [facility]. Tissue Density: There are scattered fibroglandular densities. Findings: Analyzed By CAD. Pattern appears stable. There may be some slight increased density within the right breast compared to the left surgical changes are within the right breast. No suspicious groups of microcalcifications, spiculated or lobular masses, architectural distortion or other secondary signs of malignancy are mammographically apparent. Overall Assessment: Benign, BI-RAD 2 Management: Screening Mammogram of both breasts in 1 year. A negative mammogram report should not preclude additional follow up of suspicious palpable abnormalities. Patient should continue monthly self breast exam. A clinical breast exam by your physician is recommended on an annual basis and results should be correlated with mammographic findings. Electronically signed and approved by: Praneeth Purdy D.O. Radiologis
== END | disposition home or self-care (01) ==
LOC: RADMAMWWP 11:47
PROVIDERS: ATTEND Obstetrics & Gynecology
DX: Z12.31 Encounter for screening mammogram for malignant neoplasm of breast (principal); Z78.0 Asymptomatic menopausal state
CPT/HCPCS: 77063; 77067

== ENCOUNTER → 2023-09-01 | Outpatient (CLI) | payer BC ==
--- NOTE | 2023-09-05 16:17 | PE ---
EXAMINATION TYPE: PET CT fusion skull to thigh DATE OF EXAM: 09/01/2023 COMPARISON: No recent pertinent CT Prior PET/CT: 03/04/2023 HISTORY: Breast cancer TECHNIQUE: Following the intravenous administration of 11.18 mCi of F-18 FDG, whole body images are performed from the skull base to the midthigh. Images are reviewed on the computer in the coronal, a xial, and sagittal planes. Reconstructed rotating images are created on independent workstation and reviewed on the computer. A localization and attenuation correction CT is performed in conjunction with the PET scan. DLP: 579.23 mGycm SCAN: Subsequent Blood glucose: 97 mg/dL Average Mediastinum SUV: 2.3 to Average Liver SUV: 3.57 FINDINGS: NECK: No abnormal uptake THORAX: There is some minimal intermediate uptake in the medial posterior right breast appears to be at a prior biopsy site. SUVs 2.4, image 97. This could be postsurgical in nature. Residual neoplasm s hould be considered. There is intense uptake external or on the skin surface or within the medial right breast, image 122, SUV 33.63. Contamination should be considered. Similar uptake more clearly external to the patient i s on image 130. ABDOMEN: No abnormal uptake PELVIS: No abnormal uptake OSSEOUS STRUCTURES: No abnormal uptake LOCALIZATION CT: No suspicious CT changes. COMPARISON: The mild uptake within the subareolar right breast is diminished over the interval. The s uspected contamination is noted finding. IMPRESSION: 1. Mild uptake in the previous biopsy site with an SUV of 2.4, previous SUV of 0.59. Given the previo us low signal, recurrence should be considered. 2. Probable contamination along the left and right breast discussed above.
== END | disposition home or self-care (01) ==
LOC: RADPETMAIN 14:33
PROVIDERS: ATTEND Internal Medicine Hematology & Oncology
DX: C50.211 Malignant neoplasm of upper-inner quadrant of right female breast (principal)
CPT/HCPCS: 78815; A9552

== ENCOUNTER → 2023-11-15 | Outpatient (CLI) | payer BC ==
--- NOTE | 2023-11-15 14:52 | MM ---
Reason for Exam: Follow-up at short interval from prior study. Last screening mammogram was performed 8 month(s) ago. Patient History: Menarche at age 11. Patient has no children. Postmenopausal. Breast cancer, right, age 57. Other cancer, age 58. Hormonal Contraceptives for 21 years from age 24 until age 45. 08/30/2017, Malignant Core Biopsy on the right side. 08/30/2017, Malignant Core Biopsy on the right side. 2017, Radiation Therapy on the right side. 2016, Chemotherapy. Prior Study Comparison: 11/27/2020 Bilateral Screening Mammogram, [facility]. 03/19/2022 Bilateral MG 3D screening mammo w/cad, [facility]. 03/21/2023 Bilateral MG 3D screening mammo w/cad, [facility]. Tissue Density: Right: There are scattered fibroglandular densities. Findings: Analyzed By CAD. Pattern appears stable. There is diffuse skin thickening which is been present previously. Bowels are marker appears to be within the 1:00 middle position right breast. Few scattered benign punctate calcifications are present. No suspicious groups of microcalcifications, spiculated or lobular masses, architectural distortion or other secondary signs of malignancy are mammographically apparent. Overall Assessment: Benign, BI-RAD 2 Management: Diagnostic Breast Ultrasound of the right breast. A negative mammogram report should not preclude additional follow up of suspicious palpable abnormalities. Patient should continue monthly self breast exam. A clinical breast exam by your physician is recommended on an annual basis and results should be correlated with mammographic findings. Electronically signed and approved by: Praneeth Purdy D.O. Radiologis
--- NOTE | 2023-11-15 15:17 | USB ---
Reason for Exam: Clinical finding. Patient History: Menarche at age 11. Patient has no children. Postmenopausal. Breast cancer, right, age 57. Other cancer, age 58. Hormonal Contraceptives for 21 years from age 24 until age 45. 08/30/2017, Malignant Core Biopsy on the right side. 08/30/2017, Malignant Core Biopsy on the right side. 2017, Radiation Therapy on the right side. 2016, Chemotherapy. Technique: Method: Targeted. Prior Study Comparison: 11/27/2020 Bilateral Screening Mammogram, [facility]. 03/19/2022 Bilateral MG 3D screening mammo w/cad, [facility]. 03/21/2023 Bilateral MG 3D screening mammo w/cad, [facility]. Findings: The periareolar of the right breast and the retroareolar of the right breast were scanned. No solid or cystic masses are identified.. Diffuse skin thickening is present. This can be related to prior treatment. Overall Assessment: Probably benign, BI-RAD 3 Management: Screening Mammogram of both breasts in 1 year. A clinical breast exam by your physician is recommended on an annual basis and results should be correlated with mammographic findings. This exam should not preclude additional follow-up of suspicious palpable abnormalities. Results were given to the patient verbally at the time of exam. Electronically signed and approved by: Praneeth Purdy D.O. Radiologis
== END | disposition home or self-care (01) ==
LOC: RADMAMWWP 13:55
PROVIDERS: ATTEND Internal Medicine Hematology & Oncology
DX: R92.321 Mammographic fibroglandular density, right breast (principal); Z85.3 Personal history of malignant neoplasm of breast; Z78.0 Asymptomatic menopausal state
CPT/HCPCS: 77061; 77065

== ENCOUNTER → 2024-01-12 | Outpatient (CLI) | payer BC ==
--- NOTE | 2024-01-13 14:38 | PE ---
EXAMINATION TYPE: PET CT fusion skull to thigh DATE OF EXAM: 01/12/2024 COMPARISON: Most recent prior PET/CT September 01, 2023 and older studies HISTORY: Right-sided breast cancer diagnosed September 2017 completed treatment in 2019. TECHNIQUE: Following the intravenous administration of 12.76 mCi of F-18 FDG, whole body images are performed from the skull base to the midthigh. Images are reviewed on the computer in the coronal, a xial, and sagittal planes. Reconstructed rotating images are created on independent workstation and reviewed on the computer. A localization and attenuation correction CT is performed in conjunction with the PET scan. Blood glucose level equals 99. SCAN: Subsequent Scan FINDINGS: SKULL BASE AND NECK: No new areas of abnormal hypermetabolic uptake. CHEST, MEDIASTINUM, AND HILAR REGION: Posttreatment change to the right breast medially is redemonstr ated without abnormal hypermetabolic uptake. Right sided skin thickening and trabeculation again seen . No new areas of abnormal hypermetabolic uptake. ABDOMEN AND PELVIS: Normal excretion. No new areas of abnormal hypermetabolic uptake. OSSEOUS STRUCTURES: No new areas of abnormal hypermetabolic uptake. OTHER CT: Low lung volumes redemonstrated. Liver is diffusely low-density consistent with fatty infil trative hepatocellular disease. Normal-appearing appendix from cecum is noted. IMPRESSION: No new areas of abnormal hypermetabolic uptake to suggest active neoplastic recurrence.
== END | disposition home or self-care (01) ==
LOC: RADPETMAIN 12:27
PROVIDERS: ATTEND Internal Medicine Hematology & Oncology
DX: C50.211 Malignant neoplasm of upper-inner quadrant of right female breast (principal)
CPT/HCPCS: 78815; A9552

== ENCOUNTER → 2024-08-31 | Outpatient (CLI) | payer BC ==
--- NOTE | 2024-09-02 20:27 | PE ---
EXAMINATION TYPE: PET CT fusion skull to thigh DATE OF EXAM: 08/31/2024 COMPARISON: No recent pertinent CT Prior PET/CT: 01/12/2024 HISTORY: Breast Cancer TECHNIQUE: Following the intravenous administration of 10.78 mCi of F-18 FDG, whole body images are performed from the skull base to the midthigh. Images are reviewed on the computer in the coronal, a xial, and sagittal planes. Reconstructed rotating images are created on independent workstation and reviewed on the computer. A localization and attenuation correction CT is performed in conjunction with the PET scan. DLP: 691.50 mGycm SCAN: Subsequent Blood glucose: 95 mg/dL Average Mediastinum SUV: 2.58 Average Liver SUV: 3.54 FINDINGS: NECK: No abnormal uptake THORAX: No abnormal uptake ABDOMEN: No suspicious uptake PELVIS: No suspicious uptake OSSEOUS STRUCTURES: No suspicious uptake LOCALIZATION CT: Axillary regions appear clear. Biopsy marker identified within the right breast. No suspicious changes on the localization CT. COMPARISON: No significant interval change IMPRESSION: 1. No suspicious changes to suggest recurrent or metastatic neoplasm. Follow-up can be performed as c linically indicated. [facility], , 09/02/2024 8:25 PM
== END | disposition home or self-care (01) ==
LOC: RADPETMAIN 11:03
PROVIDERS: ATTEND Internal Medicine Hematology & Oncology
DX: C50.211 Malignant neoplasm of upper-inner quadrant of right female breast (principal)
CPT/HCPCS: 78815

== ENCOUNTER → 2024-11-16 | Outpatient (CLI) | payer BC ==
--- NOTE | 2024-11-16 13:32 | MM ---
Reason for Exam: Screening (asymptomatic). Last mammogram was performed 1 year(s) and 8 month(s) ago. Patient History: Menarche at age 11. Patient has no children. Postmenopausal. Breast cancer, right, age 57. Other cancer, age 58. Hormonal Contraceptives for 21 years from age 24 until age 45. 08/30/2017, Malignant Core Biopsy on the right side. 08/30/2017, Malignant Core Biopsy on the right side. 2017, Radiation Therapy on the right side. 2016, Chemotherapy. Prior Study Comparison: 03/19/2022 Bilateral MG 3D screening mammo w/cad, [facility]. 03/21/2023 Bilateral MG 3D screening mammo w/cad, [facility]. 11/15/2023 Right MG 3D diag mammo w/cad RT, [facility]. Tissue Density: The breasts are almost entirely fatty. Findings: Analyzed By CAD. Right breast surgical clips. Right breast: There is no suspicious group of microcalcifications or new suspicious mass. Left breast: There is no suspicious group of microcalcifications or new suspicious mass. Stable asymmetric posterior depth on MLO back to 2020. Overall Assessment: Benign, BI-RAD 2 Management: Screening Mammogram of both breasts in [address] [facility] will attempt to contact patient to return for supplemental views and ultrasound if indicated. Patient should continue monthly self-breast exams. A clinical breast exam by your physician is recommended on an annual basis. This exam should not preclude additional follow-up of suspicious palpable abnormalities. Note on Cyndie scores and lifetime risk: 1. A Cyndie score greater than 3% is considered moderate risk. If this is the case, consider specialist referral to assess eligibility for a risk reducing agent. 2. If overall lifetime risk for the development of breast cancer is 20% or higher, the patient may qualify for future screening with alternating mammogram and breast MRI. [facility], , 11/16/2024 1:21 PM. Electronically signed and approved by: Jerson Jean DO
== END | disposition home or self-care (01) ==
LOC: RADMAMWWP 10:57
PROVIDERS: ATTEND Internal Medicine Hematology & Oncology
DX: Z12.31 Encounter for screening mammogram for malignant neoplasm of breast (principal); Z78.0 Asymptomatic menopausal state
CPT/HCPCS: 77067

== ENCOUNTER → 2025-01-31 | Outpatient (CLI) | payer BC ==
--- NOTE | 2025-01-31 15:09 | PE ---
EXAMINATION TYPE: PET CT fusion skull to thigh DATE OF EXAM: 01/31/2025 COMPARISON: Prior PET/CT August 31, 2024 and older studies. HISTORY: Right-sided breast cancer diagnosed 2017 at 1:00 position . TECHNIQUE: Following the intravenous administration of 10.84 mCi of F-18 FDG, whole body images are performed from the skull base to the midthigh. Images are reviewed on the computer in the coronal, a xial, and sagittal planes. Reconstructed rotating images are created on independent workstation and reviewed on the computer. A localization and attenuation correction CT is performed in conjunction with the PET scan. Blood glucose level equals 113. SCAN: Subsequent Scan FINDINGS: SKULL BASE AND NECK: No new areas of abnormal hypermetabolic uptake. CHEST, MEDIASTINUM, AND HILAR REGION: Posttreatment change to the right breast medially are redemonst rated without abnormal hypermetabolic uptake. Asymmetric Right sided skin thickening and trabeculatio n again seen. No new areas of abnormal hypermetabolic uptake. ABDOMEN AND PELVIS: Normal excretion. No new areas of abnormal hypermetabolic uptake. OSSEOUS STRUCTURES: No new areas of abnormal hypermetabolic uptake. OTHER CT: Low lung volumes redemonstrated. Liver remains diffusely low-density consistent with fatty infiltrative hepatocellular disease. Normal-appearing appendix from cecum is redemonstrated. IMPRESSION: No new areas of abnormal hypermetabolic uptake to suggest active neoplastic recurrence. N o significant change from most recent PET CTs. [facility], , 01/31/2025 3:07 PM
== END | disposition home or self-care (01) ==
LOC: RADPETMAIN 08:05
PROVIDERS: ATTEND Internal Medicine Hematology & Oncology
DX: C50.211 Malignant neoplasm of upper-inner quadrant of right female breast (principal)
CPT/HCPCS: 78815; A9552